=== PATIENT | male | born 1975 | race Caucasian/White ===

== ENCOUNTER 2021-05-03 08:06 | Outpatient (REF) | payer OTHER, SELFPAY ==
--- NOTE | ~2021-05-03 | XR_ITS ---
EXAMINATION: XR CHEST CLINICAL INFORMATION: R07.89 - Other chest pain COMPARISON: None TECHNIQUE: 2 views of the chest were obtained. FINDINGS: There is no pneumothorax or pleural reaction. No airspace consolidation or groundglass opacity. The costophrenic sulci are clear. There is no effusion. The heart is normal in size. The hilar and mediastinal contours are normal. There is no visible acute bony abnormality. Mild multilevel spurring is present in the thoracic spine. XR/XR chest 2V IMPRESSION: Unremarkable examination.
[2021-05-03 12:24] LABS: Alanine Aminotransferase 22 U/L (0-40); Albumin Level 4.3 g/dL (3.5-5.0); Alkaline Phosphatase 82 U/L (39-117); Anion Gap 10 (12-20); Aspartate Amino Transferase 17 U/L (5-37); Bilirubin Total 0.5 mg/dL (0.0-1.0); Blood Urea Nitrogen 11 mg/dL (9-16); Calcium 9.4 mg/dL (8.4-10.2); Carbon Dioxide 30 mmol/L (22-29); Chloride 102 mmol/L (96-108); Cholesterol 194 mg/dL; Estimated Glomerular Filt Rate > 60; HDL Cholesterol 27 mg/dL; LDL Cholesterol Calculated 101 mg/dl; Potassium 4.1 mmol/L (3.3-5.1); Sodium 138 mmol/L (135-145); Total Protein 7.4 g/dL (6.5-8.0); Triglycerides 333 mg/dL
[2021-05-03 12:30] LABS: Estimated Average Glucose 260 mg/dL; Hemoglobin A1c % 10.7 %
[2021-05-03 12:46] LABS: TSH reflex Free T4 3.71 uIU/mL (0.32-4.0)
[2021-05-03 12:54] LABS: Glucose Fasting 327 mg/dL (60-99)
[2021-05-03 13:53] LABS: Creatinine Urine 106.11 mg/dL; Microalbum/Creatinine Ratio Ur 6.5 ug/mg cr
== END 2021-05-03 08:07 | disposition home or self-care (01) ==
LOC: HO.HMGCLDS 08:06
PROVIDERS: PCP Nurse Practitioner Family; Visit Provider Nurse Practitioner Family
DX: Z00.00 Encounter for general adult medical examination without abnormal findings (principal); E11.9 Type 2 diabetes mellitus without complications; R07.89 Other chest pain
CPT/HCPCS: 36415; 71046; 80053; 80061; 82043; 83036; 84443

== ENCOUNTER 2021-11-01 11:06 | Outpatient (REF) | payer OTHER, SELFPAY ==
[2021-11-01 14:09] LABS: Appearance Urine CLOUDY; Color Urine YELLOW; Glucose Urine UA 250 MG/DL (NEG); Leukocyte Esterase Urine NEG (NEG); Nitrite Urine NEG (NEG); Specific Gravity - Urine >= 1.030 (1.005-1.025); Urine Blood NEG (NEG); Urine Ketones 5 MG/DL (NEG); Urine Protein NEG (NEG-TRACE)
[2021-11-01 14:29] LABS: Alanine Aminotransferase 24 U/L (0-40); Albumin Level 4.4 g/dL (3.5-5.0); Alkaline Phosphatase 70 U/L (39-117); Anion Gap 13 (12-20); Aspartate Amino Transferase 20 U/L (5-37); Bilirubin Total 0.7 mg/dL (0.0-1.0); Carbon Dioxide 26 mmol/L (22-29); Chloride 102 mmol/L (96-108); Cholesterol 195 mg/dL; Estimated Glomerular Filt Rate > 60; Glucose Fasting 182 mg/dL (60-99); HDL Cholesterol 35 mg/dL; LDL Cholesterol Calculated 133 mg/dl; Sodium 137 mmol/L (135-145); TSH reflex Free T4 1.74 uIU/mL (0.32-4.0); Total Protein 7.8 g/dL (6.5-8.0); Triglycerides 136 mg/dL
[2021-11-01 15:38] LABS: Estimated Average Glucose 235 mg/dL; Hemoglobin A1c % 9.8 %
[2021-11-01 15:47] LABS: Blood Urea Nitrogen 11 mg/dL (9-16); Calcium 9.8 mg/dL (8.4-10.2)
== END 2021-11-01 11:07 | disposition home or self-care (01) ==
LOC: HO.HMGCLDS 11:06
PROVIDERS: Visit Provider Nurse Practitioner Family
DX: E11.65 Type 2 diabetes mellitus with hyperglycemia (principal)
CPT/HCPCS: 36415; 80053; 80061; 81003; 83036; 84443

== ENCOUNTER 2022-02-27 10:32 | Outpatient (REF) | payer OTHER, SELFPAY ==
[2022-02-27 11:30] LABS: Appearance Urine CLEAR; Color Urine YELLOW; Glucose Urine UA 100 MG/DL (NEG); Leukocyte Esterase Urine NEG (NEG); Nitrite Urine NEG (NEG); PH 5.5 (5.0-8.0); Specific Gravity - Urine >= 1.030 (1.005-1.025); Urine Blood NEG (NEG); Urine Ketones NEG (NEG); Urine Protein NEG (NEG-TRACE)
[2022-02-27 12:18] LABS: Alanine Aminotransferase 19 U/L (0-40); Albumin Level 4.3 g/dL (3.5-5.0); Alkaline Phosphatase 68 U/L (39-117); Anion Gap 13 (12-20); Aspartate Amino Transferase 16 U/L (5-37); Bilirubin Total 0.7 mg/dL (0.0-1.0); Blood Urea Nitrogen 9 mg/dL (9-16); Calcium 9.2 mg/dL (8.4-10.2); Carbon Dioxide 25 mmol/L (22-29); Chloride 102 mmol/L (96-108); Cholesterol 170 mg/dL; Estimated Average Glucose 226 mg/dL; Estimated Glomerular Filt Rate > 60; Glucose Fasting 203 mg/dL (60-99); HDL Cholesterol 33 mg/dL; Hemoglobin A1c % 9.5 %; LDL Cholesterol Calculated 105 mg/dl; Sodium 136 mmol/L (135-145); Total Protein 7.5 g/dL (6.5-8.0); Triglycerides 160 mg/dL
[2022-02-27 12:22] LABS: TSH reflex Free T4 1.72 uIU/mL (0.32-4.0)
== END 2022-02-27 10:33 | disposition home or self-care (01) ==
LOC: HO.HMGCLDS 10:32
PROVIDERS: PCP Nurse Practitioner Family; Visit Provider Nurse Practitioner Family
DX: Z00.00 Encounter for general adult medical examination without abnormal findings (principal); E11.9 Type 2 diabetes mellitus without complications
CPT/HCPCS: 36415; 80053; 80061; 81003; 83036; 84443

== ENCOUNTER 2023-07-22 10:32 | Outpatient (AMB) | payer OTHER, SELFPAY ==
--- NOTE | 2023-07-22 11:10 | A.OFFPC_ITS ---
Vital Signs 07/22/23 11:13 Height 6 ft 1 in Weight 292 lb BMI 38.5 BP 122/90 H Blood Pressure Location Lt brachial Position Sitting Pulse 86 Pulse Source Pulse Oximeter Pulse Oximetry (%) 98 Oxygen Delivery Method Room Air Intake Visit Reasons: Annual PE+ NEEDS PHQ9+ THRIVE Intake Note: Patient would like to talk about bilat hand numbness/falling asleep and has been happening for about 2 months. Allergies lisinopril Adverse Reaction (Unknown, Verified 07/22/23 11:13) cough dogs and cats Allergy (Unknown, Uncoded 07/22/23 11:13) Unknown oak Allergy (Unknown, Uncoded 07/22/23 11:13) Unknown Medication List - Last Reconciled 07/22/23 by Venkat Contreras [facility] amlodipine 10 mg PO DAILY 90 days blood sugar diagnostic (FreeStyle Lite Strips) patient to check blood sugar once daily blood-glucose meter (FreeStyle Lite Meter kit) patient to check blood sugar once daily dulaglutide 3 mg (0.5 mL) subcut QWEEK 30 days hydrochlorothiazide 12.5 mg PO DAILY 90 days hydrocortisone 2.5% 1 appl topical BID PRN 14 days irbesartan 300 mg PO DAILY 90 days ketoconazole 2% 1 appl topical BID 14 days lancets (FreeStyle Lancets) Patient to check blood sugar once daily pravastatin 20 mg PO DAILY 90 days Tobacco use date assessed: 01/10/23 Dental Screening Dental Screen Date: 07/22/23 Did you have a dental visit in the last 12 months?: No Did you have a dental problem in the last 6 months where you did not have access to dental care?: No HPI Annual PE+ NEEDS PHQ9+ THRIVE HPI Details Pt is here for a PE. Will order labs. Due for colon screen, will refer to GI. Pt is a diabetic, on an ARB and a statin. A1C in office today is 7.2. Due for microalbumin, will order. Denies polyuria, polydipsia, and neuropathy. Pt denies any signs and symptoms of hypoglycemia and does know how to correct it. Pt does not check his blood sugar. Will increase trulicity from 3mg to 4.5mg. He will think about a sensor. Eye exam is up to date. Will refer to podiatry for ingrown toenails. HTN: Pt reports that his blood pressure at home is in the 120s/80s. Denies chest pain, shortness of breath, headache, dizziness, and blurred vision. [facility] Medical History Uncontrolled diabetes mellitus Surgical History No pertinent past surgical history Family History Father Chronic arthritis Gout Diabetes mellitus Mother HTN (hypertension) Maternal Grandmother Unknown family medical history Sister No problems noted. Son No problems noted. Daughter No problems noted. Social History Housing: House Alcohol intake: never Patient Tobacco Use Status: Former Tobacco user Cigarettes Per Day: 10 e-Cigarette/Vaping Use: Never Used Second Hand Smoke Exposure: No Current occupational status: unemployed Cognitive needs: No Hearing needs: No Vision needs: No Questionnaire PHQ-9 Over the last 2 weeks, how often have you been bothered by any of the following problems? 1. Little interest or pleasure in doing things: not at all 2. Feeling down, depressed, or hopeless: not at all 3. Trouble falling or staying asleep, or sleeping too much: several days 4. Feeling tired or having little energy: several days 5. Poor appetite or overeating: several days 6. Feeling bad about yourself - or that you are a failure or have let yourself or your family down: not at all 7. Trouble concentrating on things, such as reading the newspaper or watching television: not at all 8. Moving or speaking so slowly that other people could have noticed. Or the opposite - being so fidgety or restless that you have been moving around a lot more than usual: not at all 9. Thoughts that you would be better off or of hurting yourself in some way: not at all Total score: 3 Depression Screening Interpretation: Negative Depression Screening Done: Yes 56879 - PHQ-9 Billing: Yes Source: Developed by Drs. Benjamin Cevallos, Mis Romero, Parth Medina and colleagues, with an educational kadi from [employer]. Thrive Questionnaire Date Thrive assessed: 07/22/23 I am a: Patient What is your living situation today?: I have a steady place to live Within the past 12 months, did the food you bought not last and you didn't have the money to get more?: Never true Within the past 12 months, did you worry whether your food would run out before you got money to buy more?: Never true Do you have trouble paying for medicines?: No Do you have trouble getting transportation to medical appointments?: No Do you have trouble paying your heating and electricity bill?: No Do you have trouble taking care of your child, family member or friend?: No Do you have trouble with day-to-day activities such as bathing, preparing meals, shopping, managing finances, etc.?: No Are you currently unemployed and looking for a job?: No Are you interested in more education?: No AUDIT C Alcohol Use Questionnaire (AUDIT-C) 1. How often do you have a drink containing alcohol?: Never 3. How often do you have six or more drinks on one occasion?: Never Total Score: 0 Score Reviewed/Action Taken: No ARLETH-7 AMB Questionnaire ARLETH-7 Date ARLETH - 7 assessed: 07/22/23 Feeling nervous, anxious, or on edge: 0 = Not at all Not being able to stop or control worryin = Not at all Worrying too much about different things: 0 = Not at all Trouble relaxin = Several days Being so restless that it is hard to sit still: 0 = Not at all Becoming easily annoyed or irritable: 0 = Not at all Feeling afraid as if something awful might happen: 0 = Not at all Total ARLETH-7 score (0-4 normal; 5-9 mild; 10-14 moderate; 15-21 severe): 1 Source: Developed by Drs. Benjamin Cevallos, Parth Elise and colleagues, with an educational kadi from [employer]. ARLETH-7 Assessment Billing ARLETH-7 Assessment Tool: ARLETH-7 Assessment 49662 Review of Systems Const Denies chills and Denies fever(s) Eyes Denies blurry vision ENT Denies vertigo, Denies dizziness and Denies sore throat Card Denies chest pain at rest, Denies chest pain with activity, Denies diaphoresis, Denies dyspnea and Denies dyspnea on exertion Resp Denies cough, Denies dyspnea, Denies dyspnea on exertion and Denies wheezing GI Denies abdominal pain, Denies melena, Denies hematochezia, Denies constipation, Denies diarrhea and Denies loose stools Denies hematuria Musc Denies numbness and Denies tingling Skin/Breast Denies lesions Neuro Denies vertigo, Denies dizziness, Denies numbness and Denies tingling Psych Denies anxiety, Denies depression, Denies homicidal ideation, Denies suicidal ideation and Denies other (substance abuse) Aller/Immun Denies wheezing Physical exam (Primary Care) Vital Signs: Last Vital Signs Pulse 86 07/22/23 11:13 BP 122/90 H 07/22/23 11:13 Pulse Ox 98 07/22/23 11:13 Oxygen Delivery Method Room Air 07/22/23 11:13 BMI result Body Mass Index 38.5 Tobacco/Smoking Status: Tobacco use Status Tobacco use date assessed 01/10/23 07/22/23 11:11 Patient Tobacco Use Status Former Tobacco user 07/22/23 11:11 e-Cigarette/Vaping Use Never Used 07/22/23 11:11 PHQ-9: PHQ-9 Score PHQ-9: Total score 3 07/22/23 11:46 Depression Screening Interpretation: Negative Thrive Assessment: Date of Thrive Assessment Date Thrive assessed 07/22/23 07/22/23 11:46 Const General: cooperative Nutritional Appearance: obese Orientation/consciousness: patient oriented x3 HENMT Head: Yes normal to inspection, Yes normocephalic and Yes atraumatic Ears: TM's normal bilaterally Eyes General: appearance normal, both eyes and all related structures Alignment and Position: alignment normal and position normal Neck Neck: Yes normal visual inspection and Yes no lymphadenopathy Thyroid: Thyroid normal Resp Effort & Inspection: normal respiratory effort Auscultation: clear to auscultation bilaterally Cardio Rate: regular rate Rhythm: regular rhythm Heart sounds: S1 normal heart sound present, S2 normal heart sound present and no murmurs GI Palpation (GI): Soft to palpation and nontender Auscultation: normal bowel sounds Male General Exam: Yes normal external exam Penis: normal penis Scrotum: scrotum normal, testes descended bilaterally and no inguinal hernias Testes: no testicular mass Skin Rashes: no rashes Neuro General: patient oriented x3, moves all extremities, no focal motor deficits and deep tendon reflexes 2+ bilaterally Romberg Test: Negative Extrem Other: bilat feet: + sensation with use of monofilament, bilat big toenails ingrown without infection Psych Appearance: grossly normal Mental Status: mental status grossly normal Speech and movement: Normal speech and movement present Affect: normal affect Attitude: cooperative Thought process: Normal thought process present Thought content: Normal thought content present Insight: Good insight present (Psych) Judgement: Good judgement present (Psych) Office Procedures Flu Questionnaire Does the patient have a severe egg allergy?: No Does the patient have severe life threatening allergies?: No Does the patient have a fever or illness today?: No Has the patient ever had Guillain-Wink Syndrome?: No Has the patient ever had any past reaction to a flu shot?: No Immunizations flu vacc [id number] 6mos up(PF) 60 mcg(15 mcgx4)/0.5 mL IM syringe Performing Provider: BENJI Hyde Performing Location: [facility] Administered by: Victorina Tucker CMA on 07/22/23 11:47 Dose Route Admin Location Dispensed Lot Number Expiration Date NDC Chief Strategy Officer 0.5 mL IM Right Deltoid 0.5 mL [id number] 03/22/24 19009-373-00 [employer] VIS Given Date VIS Provided VIS Publication Date 07/22/23 Single Vaccine 21 Eligibility Eligibility Date Funding Source Not [facility] Eligible 07/22/23 Private Assessment and Plan Assessment & Plan (1) Ingrown toenail: Code(s): L60.0 - Ingrowing nail (2) Diabetes: Code(s): E11.9 - Type 2 diabetes mellitus without complications (3) Screening for colon cancer: Code(s): Z12.11 - Encounter for screening for malignant neoplasm of colon (4) Physical exam: Code(s): Z00.00 - Encounter for general adult medical examination without abnormal findings Plan The patient agreed to the use of a manager medical writing for this encounter. Scribed for BENJI Pulido by meredith Traore scribe, on 07/22/2023 at 11:25 EST. Orders: Orders Influenza [id number] Immunization Today Z23 - Encounter for immunization Referrals Gastroenterology Referral Z12.11 - Encounter for screening for malignant neoplasm of colon Podiatry Referral E11.9 - Type 2 diabetes mellitus without complications, L60.0 - Ingrowing nail Medications: New flu vacc [id number] 6mos up(PF) 0.5 mL IM ONCE 0.5 mL 0RF Z23 - Encounter for immunization Changed From dulaglutide 3 mg (0.5 mL) subcut QWEEK 30 days 2.5 mL 3RF E11.9 - Type 2 diabetes mellitus without complications To dulaglutide 4.5 mg (0.5 mL) subcut QWEEK 30 days 2.5 mL 3RF E11.9 - Type 2 diabetes mellitus without complications Coding Level of Care Code Est Pt Prev Care 40-64y(60695) Diagnoses Ingrown toenail L60.0 Diabetes E11.9 Screening for colon cancer Z12.11 Physical exam Z00.00 Additional Codes ARLETH-7 Assessment Billing - ARLETH-7 Assessment Tool: ARLETH-7 Assessment [id number] ([id number])
[2023-07-22 11:13] VITALS: BP 122/90; PULSE 86; O2SAT 98; BMI 38.5
== END 2023-07-22 11:56 | disposition home or self-care (01) ==
PROVIDERS: PCP Nurse Practitioner Family; Visit Provider Nurse Practitioner Family
DX: Z00.00 Encounter for general adult medical examination without abnormal findings (principal); E11.9 Type 2 diabetes mellitus without complications; L60.0 Ingrowing nail; Z23 Encounter for immunization
CPT/HCPCS: 83036; 90471; 90472; 90677; 90686; 99396

== ENCOUNTER 2023-12-12 10:33 | Outpatient (REF) | payer OTHER, SELFPAY ==
[2023-12-12 13:19] LABS: MANUAL DIFF FLAG NO
[2023-12-12 13:41] LABS: Basophils Percent Auto 0.3 % (0-2); Eosinophils Absolute Auto 0.2 X10*3/uL (0.0-0.4); Eosinophils Percent Auto 3.4 % (0-4); Hematocrit 42.9 % (42.0-52.0); Hemoglobin 14.7 g/dl (14.0-18.0); Imm Gran Abs Auto 0.02 X10*3/uL (0.00-0.03); Imm Gran Pct Auto 0.3 % (0.0-0.4); Lymphocytes Absolute Auto 2.4 X10*3/uL (1.2-4.9); Mean Corpuscular HGB Conc 34.3 g/dl (31.0-36.0); Mean Corpuscular Hemoglobin 30.2 pg (27.0-33.0); Mean Corpuscular Volume 88.3 fL (80.0-98.0); Mean Platelet Volume 10.3 fL (9.4-12.4); Monocytes Absolute Auto 0.4 X10*3/uL (0.1-1.2); Monocytes Percent Auto 6.7 % (2-11); Neutrophils Absolute Auto 3.1 x10*3/uL (2.0-8.3); Neutrophils Percent Auto 50.3 % (45-73); Platelet Count 258 X10*3/uL (160-400); Red Blood Count 4.86 X10*6/uL (4.60-5.80); Red Cell Distribution Width 11.5 % (11.0-16.0); White Blood Count 6.1 X10*3/uL (4.8-10.8)
[2023-12-12 13:49] LABS: Appearance Urine Clear; Color Urine Yellow; Glucose Urine UA 500 mg/dL (Negative); Leukocyte Esterase Urine Negative (Negative); Nitrite Urine Negative (Negative); PH 7.5 (5.0-9.0); Specific Gravity - Urine 1.015 (1.005-1.025); Urine Blood Negative (Negative); Urine Ketones Negative (Negative); Urine Protein Negative (Neg-Trace)
[2023-12-12 14:02] LABS: Alanine Aminotransferase 14 U/L (0-40); Albumin Level 4.4 g/dL (3.5-5.0); Alkaline Phosphatase 76 U/L (39-117); Anion Gap 11 (12-20); Aspartate Amino Transferase 17 U/L (5-37); Bilirubin Total 0.7 mg/dL (0.0-1.0); Blood Urea Nitrogen 11 mg/dL (9-16); Calcium 9.4 mg/dL (8.4-10.2); Carbon Dioxide 27 mmol/L (22-29); Chloride 102 mmol/L (96-108); Cholesterol 193 mg/dL (<200); Estimated Glomerular Filt Rate > 60; Glucose Fasting 234 mg/dL (60-99); HDL Cholesterol 34 mg/dL (>40); LDL Cholesterol Calculated 126 mg/dL (<100); Potassium 4.1 mmol/L (3.3-5.1); Sodium 136 mmol/L (135-145); Total Protein 7.8 g/dL (6.5-8.0); Triglycerides 169 mg/dL (<150)
[2023-12-12 14:10] LABS: TSH reflex Free T4 2.17 uIU/mL (0.32-4.0)
[2023-12-12 14:21] LABS: Creatinine Urine 57.85 mg/dL; Microalbumin Urine < 5.0 mg/L
== END 2023-12-12 10:34 | disposition home or self-care (01) ==
LOC: HO.HMGCLDS 10:33
PROVIDERS: PCP Nurse Practitioner Family; Visit Provider Nurse Practitioner Family
DX: E11.9 Type 2 diabetes mellitus without complications (principal)
CPT/HCPCS: 36415; 80053; 80061; 81003; 82043; 82570; 84443; 85025

== ENCOUNTER 2023-12-12 15:35 | Outpatient (AMB) | payer OTHER, SELFPAY ==
[2023-12-12 15:42] VITALS: BP 156/90; PULSE 96; O2SAT 98; BMI 38.3
--- NOTE | 2023-12-12 15:42 | A.OFFPC_ITS ---
Vital Signs 12/12/23 15:42 Height 6 ft 1 in Weight 290 lb BMI 38.3 BP 156/90 H Blood Pressure Location Lt brachial Position Sitting Pulse 96 Pulse Source Pulse Oximeter Pulse Oximetry (%) 98 Oxygen Delivery Method Room Air Intake Visit Reasons: diabetes/HTN follow up Intake Note: pt is here for dm/htn follow up Software Client Architect Required: No Accompanied by: Self / Same As Patient Allergies lisinopril Adverse Reaction (Unknown, Verified 12/12/23 17:41) cough dogs and cats Allergy (Unknown, Uncoded 12/12/23 17:41) Unknown oak Allergy (Unknown, Uncoded 12/12/23 17:41) Unknown Medication List - Last Reconciled 12/12/23 by Venkat Contreras, [facility]- amlodipine 10 mg PO DAILY 90 days blood sugar diagnostic (FreeStyle Lite Strips) patient to check blood sugar once daily blood-glucose meter (FreeStyle Lite Meter kit) patient to check blood sugar once daily carvedilol (Coreg) 3.125 mg PO BID 90 days dulaglutide 4.5 mg (0.5 mL) subcut QWEEK 30 days hydrochlorothiazide 12.5 mg PO DAILY 90 days hydrocortisone 2.5% 1 appl topical BID PRN 14 days irbesartan 300 mg PO DAILY 90 days ketoconazole 2% 1 appl topical BID 14 days lancets (FreeStyle Lancets) Patient to check blood sugar once daily pravastatin 20 mg PO DAILY 90 days Tobacco use date assessed: 12/12/23 Dental Screening Dental Screen Date: 12/12/23 Did you have a dental visit in the last 12 months?: Yes Did you have a dental problem in the last 6 months where you did not have access to dental care?: No Was dental information given to patient?: Patient has dentist HPI diabetes/HTN follow up HPI Details Pt is a diabetic, on an ARB and a statin. A1C in office today is 8.8. Microalbumin is up to date. Denies polyuria, polydipsia, and neuropathy. Pt denies any signs and symptoms of hypoglycemia and does know how to correct it. Pt does not check his blood sugar often. He reports being off his trulicity for 3 weeks due to supply issues. Will send ozempic. Reenforced the importance of proper diet. He does drink soda daily, educated on dangers of this. HTN: Blood pressure is managed with amlodipine 10mg, hydrochlorothiazide 12.5mg, and irbesartan 300mg. Blood pressure is elevated today. Pt reports that at home it is elevated as well. Will add carvedilol 3.125mg bid. Denies chest pain, shortness of breath, headache, dizziness, and blurred vision. Pt reports he will make his own optometry appt. [facility] Medical History Uncontrolled diabetes mellitus Surgical History No pertinent past surgical history Family History Father Chronic arthritis Gout Diabetes mellitus Mother HTN (hypertension) Maternal Grandmother Unknown family medical history Sister No problems noted. Son No problems noted. Daughter No problems noted. Social History Housing: House Alcohol intake: never Patient Tobacco Use Status: Former Tobacco user Cigarettes Per Day: 10 e-Cigarette/Vaping Use: Never Used Second Hand Smoke Exposure: No Current occupational status: unemployed Cognitive needs: No Hearing needs: No Vision needs: No Questionnaire PHQ-9 Over the last 2 weeks, how often have you been bothered by any of the following problems? 1. Little interest or pleasure in doing things: several days 2. Feeling down, depressed, or hopeless: several days 3. Trouble falling or staying asleep, or sleeping too much: more than half the days 4. Feeling tired or having little energy: several days 5. Poor appetite or overeating: several days 6. Feeling bad about yourself - or that you are a failure or have let yourself or your family down: several days 7. Trouble concentrating on things, such as reading the newspaper or watching television: several days 8. Moving or speaking so slowly that other people could have noticed. Or the opposite - being so fidgety or restless that you have been moving around a lot more than usual: not at all 9. Thoughts that you would be better off or of hurting yourself in some way: not at all Total score: 8 Depression Screening Interpretation: Negative Depression Screening Done: Yes 19769 - PHQ-9 Billing: Yes Source: Developed by Drs. Benjamin Cevallos, Mis Romero, Parth Medina and colleagues, with an educational kadi from [employer]. Thrive Questionnaire Date Thrive assessed: 12/12/23 I am a: Patient What is your living situation today?: I have a steady place to live Within the past 12 months, did the food you bought not last and you didn't have the money to get more?: Never true Within the past 12 months, did you worry whether your food would run out before you got money to buy more?: Never true Do you have trouble paying for medicines?: No Do you have trouble getting transportation to medical appointments?: No Do you have trouble paying your heating and electricity bill?: No Do you have trouble taking care of your child, family member or friend?: No Do you have trouble with day-to-day activities such as bathing, preparing meals, shopping, managing finances, etc.?: No Are you currently unemployed and looking for a job?: No Are you interested in more education?: No Please select the resources that you would like help with: None Currently or been in a relationship where the following occur: no concerns reported THRIVE Score: 0 AUDIT C Alcohol Use Questionnaire (AUDIT-C) 1. How often do you have a drink containing alcohol?: Never 3. How often do you have six or more drinks on one occasion?: Never Total Score: 0 Score Reviewed/Action Taken: Yes ARLETH-7 AMB Questionnaire ARLETH-7 Date ARLETH - 7 assessed: 12/12/23 Feeling nervous, anxious, or on edge: 1 = Several days Not being able to stop or control worryin = Several days Worrying too much about different things: 1 = Several days Trouble relaxin = Several days Being so restless that it is hard to sit still: 0 = Not at all Becoming easily annoyed or irritable: 2 = More than half the days Feeling afraid as if something awful might happen: 0 = Not at all Total ARLETH-7 score (0-4 normal; 5-9 mild; 10-14 moderate; 15-21 severe): 6 Source: Developed by Mis Duran, Parth Medina and colleagues, with an educational kadi from [employer]. ARLETH-7 Assessment Billing ARLETH-7 Assessment Tool: ARLETH-7 Assessment 03284 Review of Systems Const Reports as per HPI Physical exam (Primary Care) Vital Signs: Last Vital Signs Pulse 96 12/12/23 15:42 BP 156/90 H 12/12/23 15:42 Pulse Ox 98 12/12/23 15:42 Oxygen Delivery Method Room Air 12/12/23 15:42 BMI result Body Mass Index 38.3 Tobacco/Smoking Status: Tobacco use Status Tobacco use date assessed 12/12/23 12/12/23 15:44 Patient Tobacco Use Status Former Tobacco user 12/12/23 15:44 e-Cigarette/Vaping Use Never Used 12/12/23 15:44 PHQ-9: PHQ-9 Score PHQ-9: Total score 8 12/12/23 16:01 Depression Screening Interpretation: Negative Thrive Assessment: Date of Thrive Assessment Date Thrive assessed 12/12/23 12/12/23 15:55 Currently or been in a relationship where the following occur: no concerns reported Const General: cooperative Nutritional Appearance: obese Orientation/consciousness: patient oriented x3 Resp Effort & Inspection: normal respiratory effort Auscultation: clear to auscultation bilaterally Cardio Rate: regular rate Rhythm: regular rhythm Heart sounds: S1 normal heart sound present and S2 normal heart sound present Neuro General: patient oriented x3 Extrem Other: bilat feet: + sensation with use of monofilament, feet intact Psych Appearance: grossly normal Mental Status: mental status grossly normal Speech and movement: Normal speech and movement present Affect: normal affect Attitude: cooperative Thought process: Normal thought process present Thought content: Normal thought content present Insight: Good insight present (Psych) Judgement: Good judgement present (Psych) Assessment and Plan Assessment & Plan (1) Uncontrolled diabetes mellitus: Code(s): E11.65 - Type 2 diabetes mellitus with hyperglycemia Plan: encouraged to quit soda. encouraged checking his sugars more often. stopping trulicity and sending ozempic (backorder of trulicity) (2) HTN (hypertension): Code(s): I10 - Essential (primary) hypertension Plan: adding low dose coreg bid. Plan The patient agreed to the use of a medical center representative for this encounter. Scribed for BENJI Pulido by Candy Parra, medical center representative, on 12/12/2023 at 16:00 EST. Orders: Orders TSH reflex Free T4 Today E11.9 - Type 2 diabetes mellitus without complications UA CC w/rflx Micro + Cult Today E11.9 - Type 2 diabetes mellitus without complications Microalbumin, Random (w Creat) Today E11.9 - Type 2 diabetes mellitus without complications Complete Blood Count Auto Diff Today E11.9 - Type 2 diabetes mellitus without complications Comprehensive [place]. Panel Fast Today E11.9 - Type 2 diabetes mellitus without complications Lipid Panel Today E11.9 - Type 2 diabetes mellitus without complications Medications: New semaglutide (Ozempic) 1 mg (0.75 mL) subcut QWEEK 3 mL 0RF carvedilol (Coreg) must administer with a meal/food 3.125 mg PO BID 180 tabs 0RF 90 days Discontinued dulaglutide Discontinued Reason: Doctor's Order 4.5 mg (0.5 mL) subcut QWEEK 30 days 2.5 mL 3RF E11.9 - Type 2 diabetes mellitus without complications Coding Level of Care Code Est Pt Level 3 (47602) Diagnoses Uncontrolled diabetes mellitus E11.65 HTN (hypertension) I10 Additional Codes ARLETH-7 Assessment Billing - ARLETH-7 Assessment Tool: ARLETH-7 Assessment 47130 ([id number])
== END 2023-12-12 16:53 | disposition home or self-care (01) ==
PROVIDERS: PCP Nurse Practitioner Family; Visit Provider Nurse Practitioner Family
DX: E11.65 Type 2 diabetes mellitus with hyperglycemia (principal)
CPT/HCPCS: 83036; 99213

== ENCOUNTER 2024-04-16 14:10 | Outpatient (AMB) | payer OTHER, SELFPAY ==
--- NOTE | 2024-04-16 14:18 | MHC.PC.OV ---
Vital Signs 04/16/24 14:28 Height 6 ft 1 in Weight 290 lb BMI 38.3 BP 130/100 H Blood Pressure Location Rt brachial Position Sitting Pulse 92 Pulse Source Pulse Oximeter Pulse Oximetry (%) 97 Oxygen Delivery Method Room Air Intake Visit Reasons: 4M F/U DM/HTN Intake Note: Patient here for HTN f/u Allergies lisinopril Adverse Reaction (Unknown, Verified 04/16/24 14:27) cough dogs and cats Allergy (Unknown, Uncoded 04/16/24 14:27) Unknown oak Allergy (Unknown, Uncoded 04/16/24 14:27) Unknown Medication List - Last Reconciled 04/16/24 by Venkat Contreras, [facility]- amlodipine 10 mg PO DAILY 90 days blood sugar diagnostic (FreeStyle Lite Strips) patient to check blood sugar once daily blood-glucose meter (FreeStyle Lite Meter kit) patient to check blood sugar once daily carvedilol (Coreg) 3.125 mg PO BID 90 days hydrochlorothiazide 12.5 mg PO DAILY 90 days hydrocortisone 2.5% 1 appl topical BID PRN 14 days irbesartan 300 mg PO DAILY 90 days ketoconazole 2% 1 appl topical BID 14 days lancets (FreeStyle Lancets) Patient to check blood sugar once daily pravastatin 20 mg PO DAILY 90 days semaglutide 0.25 mg (0.368 mL) subcut QWEEK Tobacco use date assessed: 12/12/23 Dental Screening Dental Screen Date: 12/12/23 HPI 4M F/U DM/HTN HPI Details Pt is a diabetic. A1C in office today is 9.3. Microalbumin is up to date. Denies polyuria, polydipsia, and neuropathy. Pt denies any signs and symptoms of hypoglycemia and does know how to correct it. Pt reports being off most of his medications for over 4 months due to insurance issues. Will refill all meds and restart ozempic at 0.25mg. Strongly encouraged pt to work on his diet. He is still drinking soda, though not as much. Educated pt on high sugar content and the importance of cutting back on this. Pt will schedule his own eye exam. HTN: Pt has been off his blood pressure meds for approximately 1-2 weeks. Will resend these. Denies chest pain, shortness of breath, headache, dizziness, and blurred vision. [facility] Medical History Uncontrolled diabetes mellitus Surgical History No pertinent past surgical history Family History Father Chronic arthritis Gout Diabetes mellitus Mother HTN (hypertension) Maternal Grandmother Unknown family medical history Sister No problems noted. Son No problems noted. Daughter No problems noted. Social History Housing: House Alcohol intake: never Patient Tobacco Use Status: Former Tobacco user Cigarettes Per Day: 10 e-Cigarette/Vaping Use: Never Used Second Hand Smoke Exposure: No Current occupational status: unemployed Cognitive needs: No Hearing needs: No Vision needs: No Questionnaire PHQ-9 Over the last 2 weeks, how often have you been bothered by any of the following problems? 1. Little interest or pleasure in doing things: not at all 2. Feeling down, depressed, or hopeless: not at all 3. Trouble falling or staying asleep, or sleeping too much: several days 4. Feeling tired or having little energy: several days 5. Poor appetite or overeating: not at all 6. Feeling bad about yourself - or that you are a failure or have let yourself or your family down: not at all 7. Trouble concentrating on things, such as reading the newspaper or watching television: not at all 8. Moving or speaking so slowly that other people could have noticed. Or the opposite - being so fidgety or restless that you have been moving around a lot more than usual: not at all 9. Thoughts that you would be better off or of hurting yourself in some way: not at all Total score: 2 Source: Developed by Drs. Benjamin Cevallos, Mis Romero, Parth Medina and colleagues, with an educational kadi from [employer] Thrive Questionnaire Date Thrive assessed: 12/12/23 I am a: Patient What is your living situation today?: I have a steady place to live Within the past 12 months, did the food you bought not last and you didn't have the money to get more?: Never true Within the past 12 months, did you worry whether your food would run out before you got money to buy more?: Never true Do you have trouble paying for medicines?: Yes Do you have trouble getting transportation to medical appointments?: No Do you have trouble paying your heating and electricity bill?: No Do you have trouble taking care of your child, family member or friend?: No Do you have trouble with day-to-day activities such as bathing, preparing meals, shopping, managing finances, etc.?: No Are you currently unemployed and looking for a job?: No Are you interested in more education?: No Please select the resources that you would like help with: Paying for medicine Currently or been in a relationship where the following occur: No concerns reported THRIVE Score: 0 AUDIT C Alcohol Use Questionnaire (AUDIT-C) 1. How often do you have a drink containing alcohol?: Never Total Score: 0 ARLETH-7 AMB Questionnaire ARLETH-7 Date ARLETH - 7 assessed: 12/12/23 Feeling nervous, anxious, or on edge: 1 = Several days Not being able to stop or control worryin = Several days Worrying too much about different things: 1 = Several days Trouble relaxin = Several days Being so restless that it is hard to sit still: 1 = Several days Becoming easily annoyed or irritable: 1 = Several days Feeling afraid as if something awful might happen: 1 = Several days Total ARLETH-7 score (0-4 normal; 5-9 mild; 10-14 moderate; 15-21 severe): 7 Source: Developed by Drs. Benjamin Cevallos, Mis Romero, Parth Medina and colleagues, with an educational kadi from [employer]. Review of Systems Const Reports as per HPI Physical exam (Primary Care) Vital Signs: Last Vital Signs Pulse 92 04/16/24 14:28 BP 130/100 H 04/16/24 14:28 Pulse Ox 97 04/16/24 14:28 Oxygen Delivery Method Room Air 04/16/24 14:28 BMI result Body Mass Index 38.3 Tobacco/Smoking Status: Tobacco use Status Tobacco use date assessed 12/12/23 04/16/24 14:20 Patient Tobacco Use Status Former Tobacco user 04/16/24 14:20 e-Cigarette/Vaping Use Never Used 04/16/24 14:20 PHQ-9: PHQ-9 Score PHQ-9: Total score 2 04/16/24 14:36 Thrive Assessment: Date of Thrive Assessment Date Thrive assessed 12/12/23 04/16/24 14:20 Currently or been in a relationship where the following occur: No concerns reported Const General: cooperative Nutritional Appearance: obese Orientation/consciousness: patient oriented x3 Resp Effort & Inspection: normal respiratory effort Auscultation: clear to auscultation bilaterally Cardio Rate: regular rate Rhythm: regular rhythm Heart sounds: S1 normal heart sound present and S2 normal heart sound present Neuro General: patient oriented x3 Extrem Other: bilat feet: + sensation with use of monofilament, feet intact Results AMB Hemoglobin A1c AMB Hemoglobin A1c 9.3 % Last Edit by JACI Magana on 04/16/24 14:52 Assessment and Plan Assessment & Plan (1) Uncontrolled diabetes mellitus: Code(s): E11.65 - Type 2 diabetes mellitus with hyperglycemia Plan: Labs ordered, restarting ozempic at 0.25mg (2) HTN (hypertension): Code(s): I10 - Essential (primary) hypertension Plan: restarted all meds, pt will check his BPs at home, and drop off values in the near future Plan The patient agreed to the use of a biomedical engineering aide for this encounter. Scribed for BENJI Pulido by Candy Parra biomedical engineering aide, on 04/16/2024 at 14:45 EST. Orders: Orders Complete Blood Count Auto Diff Today E11.65 - Type 2 diabetes mellitus with hyperglycemia TSH reflex Free T4 Today E11.65 - Type 2 diabetes mellitus with hyperglycemia Comprehensive [place]. Panel Fast Today E11.65 - Type 2 diabetes mellitus with hyperglycemia UA CC w/rflx Micro + Cult Today E11.65 - Type 2 diabetes mellitus with hyperglycemia Lipid Panel Today E11.65 - Type 2 diabetes mellitus with hyperglycemia AMB Hemoglobin A1c Today E11.9 - Type 2 diabetes mellitus without complications Medications: Changed From semaglutide (Ozempic) 1 mg (0.75 mL) subcut QWEEK 3 mL 0RF To semaglutide 0.25 mg (0.368 mL) subcut QWEEK 3 mL 0RF Refilled irbesartan 300 mg PO DAILY 90 days 90 tabs 0RF pravastatin 20 mg PO DAILY 90 days 90 tabs 0RF ketoconazole 2% 1 appl topical BID 14 days 30 grams 0RF carvedilol (Coreg) must administer with a meal/food 3.125 mg PO BID 90 days 180 tabs 0RF hydrocortisone 2.5% 1 appl topical BID 14 days PRN 28.35 grams 0RF skin irritation Coding Level of Care Code Est Pt Level 3 (72928) Diagnoses Uncontrolled diabetes mellitus E11.65 HTN (hypertension) I10
[2024-04-16 14:28] VITALS: BP 130/100; PULSE 92; O2SAT 97; BMI 38.3
== END 2024-04-16 14:57 | disposition home or self-care (01) ==
PROVIDERS: PCP Nurse Practitioner Family; Visit Provider Nurse Practitioner Family
DX: E11.65 Type 2 diabetes mellitus with hyperglycemia (principal); I10 Essential (primary) hypertension; E11.9 Type 2 diabetes mellitus without complications
CPT/HCPCS: 83036; 99213

== ENCOUNTER 2024-05-11 08:30 | Outpatient (REF) | payer OTHER, SELFPAY ==
[2024-05-11 10:36] LABS: MANUAL DIFF FLAG NO
[2024-05-11 10:43] LABS: Basophils Percent Auto 0.3 % (0-2); Eosinophils Absolute Auto 0.2 X10*3/uL (0.0-0.4); Eosinophils Percent Auto 3.9 % (0-4); Hematocrit 44.1 % (42.0-52.0); Hemoglobin 14.5 g/dl (14.0-18.0); Imm Gran Abs Auto 0.02 X10*3/uL (0.00-0.03); Imm Gran Pct Auto 0.3 % (0.0-0.4); Lymphocytes Absolute Auto 2.3 X10*3/uL (1.2-4.9); Lymphocytes Percent Auto 39.6 % (20-40); Mean Corpuscular HGB Conc 32.9 g/dl (31.0-36.0); Mean Corpuscular Volume 91.3 fL (80.0-98.0); Mean Platelet Volume 10.1 fL (9.4-12.4); Monocytes Absolute Auto 0.5 X10*3/uL (0.1-1.2); Monocytes Percent Auto 9.1 % (2-11); Neutrophils Absolute Auto 2.7 x10*3/uL (2.0-8.3); Neutrophils Percent Auto 46.8 % (45-73); Platelet Count 229 X10*3/uL (160-400); Red Blood Count 4.83 X10*6/uL (4.60-5.80); Red Cell Distribution Width 11.4 % (11.0-16.0); White Blood Count 5.8 X10*3/uL (4.8-10.8)
[2024-05-11 10:59] LABS: Appearance Urine Clear; Color Urine Yellow; Glucose Urine UA >=1000 mg/dL (Negative); Leukocyte Esterase Urine Negative (Negative); Nitrite Urine Negative (Negative); PH 6.5 (5.0-9.0); Specific Gravity - Urine >= 1.030 (1.005-1.025); UMIC TRIGGER UACC YES; Urine Blood Negative (Negative); Urine Ketones Trace mg/dL (Negative); Urine Protein Negative (Neg-Trace)
[2024-05-11 11:08] LABS: Bacteria Urine None Seen (None Seen); Hyaline Casts Urine 0-2 /LPF (0-2); RBC Urine 0-2 /HPF (0-2); Squamous Epithelial Cell Urine 0-2 /HPF (0-2); WBC Urine 0-5 /HPF (0-5)
[2024-05-11 11:20] LABS: Alanine Aminotransferase 13 U/L (0-40); Albumin Level 4.2 g/dL (3.5-5.0); Alkaline Phosphatase 68 U/L (39-117); Anion Gap 11 (12-20); Aspartate Amino Transferase 15 U/L (5-37); Bilirubin Total 0.5 mg/dL (0.0-1.0); Blood Urea Nitrogen 16 mg/dL (9-16); Calcium 9.4 mg/dL (8.4-10.2); Carbon Dioxide 29 mmol/L (22-29); Chloride 104 mmol/L (96-108); Cholesterol 168 mg/dL (<200); Estimated Glomerular Filt Rate > 60; Glucose Fasting 222 mg/dL (60-99); HDL Cholesterol 31 mg/dL (>40); LDL Cholesterol Calculated 97 mg/dL (<100); Potassium 4.8 mmol/L (3.3-5.1); Sodium 139 mmol/L (135-145); Total Protein 7.3 g/dL (6.5-8.0); Triglycerides 202 mg/dL (<150)
[2024-05-11 11:21] LABS: TSH reflex Free T4 2.67 uIU/mL (0.32-4.0)
== END 2024-05-11 08:31 | disposition home or self-care (01) ==
LOC: HO.HMGCLDS 08:30
PROVIDERS: PCP Nurse Practitioner Family; Visit Provider Nurse Practitioner Family
DX: E11.65 Type 2 diabetes mellitus with hyperglycemia (principal)
CPT/HCPCS: 36415; 80053; 80061; 81001; 84443; 85025

== ENCOUNTER 2024-05-11 08:44 | Outpatient (AMB) | payer OTHER, SELFPAY ==
--- NOTE | 2024-05-11 09:00 | AM.OFFWIN_ITS ---
Intake Vital Signs 05/11/24 09:01 Height 6 ft 1 in Weight 290 lb BMI 38.3 BP 132/86 Blood Pressure Location Rt brachial Position Sitting Pulse 77 Pulse Source Pulse Oximeter Temp 98.2 F Temp Source Oral Pulse Oximetry (%) 99 Oxygen Delivery Method Room Air Intake Visit Reasons: EP RT side back pain Intake Note: pt c/o RT side back pain. Ongoing for a month and a half Patient Tobacco Use Status: Former Tobacco user Allergies lisinopril Adverse Reaction (Unknown, Verified 05/11/24 09:00) cough dogs and cats Allergy (Unknown, Uncoded 05/11/24 09:00) Unknown oak Allergy (Unknown, Uncoded 05/11/24 09:00) Unknown Do you need a note to return to daycare/school/sports/work: No HPI EP RT side back pain HPI Details This note is constructed using voice recognition software. While every effort has been made to ensure accuracy, physical medicine specialist errors may have been included. The patient is a 49 year old male who presents to the clinic today with right thoracic back pain for the past month and a half, getting worse. 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 He reports the pain to be gradual onset. He denies shortness of breath, fever, chills, cough. Does have pain worse when he turns to the left or lays in c ertain positions in the bed. He has tried ibuprofen, heat, ice, all seemed to help a little bit but did not seem to resolve the pain. He denies numbness, tingling in arms or legs. [facility] Medical History Uncontrolled diabetes mellitus Surgical History No pertinent past surgical history Family History Father Chronic arthritis Gout Diabetes mellitus Mother HTN (hypertension) Maternal Grandmother Unknown family medical history Sister No problems noted. Son No problems noted. Daughter No problems noted. Social History Housing: House Alcohol intake: never Patient Tobacco Use Status: Former Tobacco user Cigarettes Per Day: 10 e-Cigarette/Vaping Use: Never Used Second Hand Smoke Exposure: No Current occupational status: unemployed Cognitive needs: No Hearing needs: No Vision needs: No Review of Systems Const All systems reviewed & are unremarkable except as noted in HPI and below Physical Exam Vital Signs: Last Vital Signs Temp 98.2 F 05/11/24 09:01 Pulse 77 05/11/24 09:01 BP 132/86 05/11/24 09:01 Pulse Ox 99 05/11/24 09:01 Oxygen Delivery Method Room Air 05/11/24 09:01 BMI result Body Mass Index 38.3 Const General: cooperative, healthy appearing, comfortable, no acute distress and alert Orientation/consciousness: patient oriented x3 Limitations: no limitations Resp Effort & Inspection: normal respiratory effort and able to speak in complete sentences Auscultation: clear to auscultation bilaterally Cardio Jugular venous distension: no JVD Palpation: normal PMI Rate: regular rate Heart sounds: S1 normal heart sound present, S2 normal heart sound present, no click, no gallops, no murmurs and no rubs General: Yes no CVA tenderness Back/Spine/Pelvis Other: Tender to palpation Right thoracic area with increased muscle bulging. Tenderness increase his on left lateral rotation, improves with right lateral rotation. Normal range of motion of spine. Intact distal neurovascular exam. Back: no CVA tenderness Skin General skin exam: no rashes or lesions noted, elasticity normal and turgor normal Neuro General: patient oriented x3 Extrem General: Yes normal to inspection, Yes full ROM, Yes capillary refill normal and Yes normal exam except as noted Psych Appearance: grossly normal Mental Status: mental status grossly normal Speech and movement: Normal speech and movement present Affect: normal affect Assessment & Plan Assessment & Plan (1) Back pain: Code(s): M54.9 - Dorsalgia, unspecified Qualifiers: Back pain location: thoracic back pain Chronicity: acute Back pain laterality: right Qualified Code(s): M54.6 - Pain in thoracic spine Plan: Given physical examination findings, appears to be muscular strain. Advised continuation NSAIDs, heat/ice. Prescription provided for muscle relaxer for symptomatic management. Advised rest from work for today and tomorrow. Advised follow up with PCP with worsening or failure to resolve. Plan See above for full details and plan. Medications: New cyclobenzaprine 10 mg PO TID 3 days PRN 9 tabs 0RF muscle spasm Coding Level of Care Code Est Pt Level 3 (35115) Diagnoses Acute right-sided thoracic back pain M54.6 Back pain location: thoracic back pain Chronicity: acute Back pain laterality: right
[2024-05-11 09:01] VITALS: BP 132/86; PULSE 77; TEMP 36.8; O2SAT 99; BMI 38.3
== END 2024-05-11 09:29 | disposition home or self-care (01) ==
PROVIDERS: PCP Nurse Practitioner Family; Visit Provider Registered Nurse
DX: M54.6 Pain in thoracic spine (principal)
CPT/HCPCS: 99213

== ENCOUNTER 2024-06-02 12:47 | Outpatient (AMB) | payer OTHER, SELFPAY ==
--- NOTE | 2024-06-02 12:49 | A.OFFVIS_ITS ---
Vital Signs 06/02/24 12:56 06/02/24 13:34 Height 6 ft 1 in Weight 293 lb 14.019 oz BMI 38.8 BP 142/88 H 136/80 Blood Pressure Location Rt brachial Position Sitting Pulse 102 H Pulse Source Pulse Oximeter Intake Visit Reasons: DM/CONFIRMED Intake Note: New patient present today for Diabetes Mellitus, referred by PCP. Patient reports he was on Trulicity and was switched to Ozempic and has not started it due to needing an PA. 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 He was diagnosed with diabetes about 5 years ago. Hemoglobin a1c 9.3% 04/16/24. POC 320. Feels fantastic. He is not sure he has a meter. He doesn't check BG regularly. Current medication regimen: Ozempic 0.25 mg. Trulicity was tolerated, but it was stopped because it was backordered. Metformin was not tolerated due to GI upset. Glipizde made him feel woozy and dizzy so it was discontinued. Compliance issues: Patient has not been able to get the Ozempic prescribed by his primary care. He says the insurance need to approve it. Diet: Breakfast-nothing Lunch-fast food like mcdonalds, burger, fries and soda Dinner-rice, salvadorean fries, pork chops, chicken, vegetables Snacks/desserts: chips, no candy or dessert Drinks 4-8 cans of regular pepsi daily. Hypoglycemia symptoms: no symptoms or episodes Hyperglycemia symptoms: no symptoms Eye exam: due. Referred to [facility]. Microvascular complications: none Macrovascular complications: none Hypertension: treated with your valsartan, hydrochlorothiazide, amlodipine, carvedilol. His blood pressure is suboptimal today, but he had a caffeinated soda before the appointment. Hyperlipidemia: treated with pravastatin 20 mg. LDL at goal <100. ROS: Constitutional: No unexplained weight loss, fever, chills, fatigue or night sweats. Respiratory: No shortness of breath, cough or sputum production. Cardiovascular: No chest pain, chest pressure or chest discomfort. No palpitations or pedal edema. Endocrine: No cold or heat intolerance. No polyuria or polydipsia. Physical exam: Constitutional: Alert, in no distress. Neck: Supple, Full range of motion. No lymphadenopathy. No palpable thyroid masses. Respiratory: Clear to auscultation. Cardiovascular: S1 S2 regular. No murmurs. Right foot: Warm and well perfused. No clubbing, cyanosis or edema. DP pulse 3+. Mildly decreased vibratory sensation. Intact sensation to monofilament. Left foot: Warm and well perfused. No clubbing, cyanosis or edema. DP pulse 3+. Mildly decreased vibratory sensation. Intact sensation to monofilament. [facility] Medical History (Updated 06/02/24 @ 13:11 by BIN Conte) Type 2 diabetes mellitus with hyperglycemia Uncontrolled diabetes mellitus Surgical History No pertinent past surgical history Family History Father Chronic arthritis Gout Diabetes mellitus Mother HTN (hypertension) Maternal Grandmother Unknown family medical history Sister No problems noted. Son No problems noted. Daughter No problems noted. Social History Housing: House Alcohol intake: never Patient Tobacco Use Status: Former Tobacco user Cigarettes Per Day: 10 e-Cigarette/Vaping Use: Never Used Second Hand Smoke Exposure: No Current occupational status: unemployed Cognitive needs: No Hearing needs: No Vision needs: No Physical Exam Vital Signs: BMI result Body Mass Index 38.8 Results Reviewed Results Reviewed: Laboratory Tests 12/12/23 04/16/24 05/11/24 10:43 14:51 08:34 Creatinine 1.00 Estimated GFR > 60 Hgb A1c (Clinic) 9.3 H Triglycerides 202 H Cholesterol 168 LDL Cholesterol, Calc 97 HDL Cholesterol 31 L Urine Creatinine 57.85 Urine Microalbumin < 5.0 Microalb/Creat Ratio TNP Assessment & Plan Assessment & Plan (1) Type 2 diabetes mellitus with hyperglycemia: Code(s): E11.65 - Type 2 diabetes mellitus with hyperglycemia Category: Medical Qualifiers: Diabetes mellitus [facility] insulin use: without rodent exterminator use Qualified Code(s): E11.65 - Type 2 diabetes mellitus with hyperglycemia Plan: In summary this is a 49-year-old male with uncontrolled type 2 diabetes on no medications currently with no known complications. Discussed pathophysiology of Type II Diabetes Mellitus with the patient in detail.? I explained the [facility] risks and complications associated with uncontrolled diabetes including nephropathy, neuropathy, peripheral vascular disease, retinopathy, increased risk of heart disease and stroke.? Discussed lifestyle modification with the patient. Recommended 30 minutes of moderately vigorous exercise 5 days per week to promote weight loss. Specifically we discussed that he needs to stop drinking soda or at least try to cut back. We reviewed treatment of hypo/hyperglycemia. The patient is referred for an eye exam. The patient declines CGM. Ordered fingerstick glucometer and instructed to bring this to visits. Refer to extension educator. Defers referral to lobster catcher. Patient has not tolerated glipizide and metformin. Resubmit Ozempic to the pharmacy. Our office can process the prior authorization needed. Side effects and administration reviewed. Patient says it is difficult getting to appointments because of his work schedule. He will call the office after he takes his 3rd injection. If he is not experiencing significant side effects I will then send a prescription for the 0.5 mg dosage. Schedule follow up in 3 months for diabetes. Orders: Referrals Ophthalmology Referral E11.65 - Type 2 diabetes mellitus with hyperglycemia Diabetes Education Referral E11.65 - Type 2 diabetes mellitus with hyperglycemia Medications: New lancets (FreeStyle Lancets) Use as directed to monitor glucose up to 3 times daily 200 ea 5RF blood-glucose meter (FreeStyle Lite Meter kit) as directed to monitor blood glucose three times daily 1 ea 0RF E11.9 - Type 2 diabetes mellitus without complications blood sugar diagnostic (FreeStyle Lite Strips) As directed to check glucose up to 3 times daily 200 ea 5RF Refilled semaglutide 0.25 mg (0.368 mL) subcut QWEEK 3 mL 0RF Patient Instructions: If you experience low blood sugar, treat this by eating a chewable fruit candy like skittles or jelly beans (about 8 pieces), 4 ounces (1/2 cup) of fruit juice (not diet), 1 tablespoon of honey or 4 glucose tablets. If your blood sugar is under 50, take double the amount of one of the above. Recheck your blood sugar in 15 minutes. Coding Level of Care Code New Pt Level 4 (55702) Complex EM visit Add On G2211 Diagnoses Type 2 diabetes mellitus with hyperglycemia, without long-term current use of insulin E11.65 Diabetes mellitus [facility] insulin use: without [facility] use Time Spent (min) 47 Comment reviewing chart, direct patient care, completing documentation
[2024-06-02 12:56] VITALS: BP 142/88; PULSE 102; BMI 38.8
[2024-06-02 13:09] LABS: Glucose, Whole Blood 320 mg/dL (60-115)
[2024-06-02 13:34] VITALS: BP 136/80
== END 2024-06-02 13:42 | disposition home or self-care (01) ==
PROVIDERS: PCP Nurse Practitioner Family; Visit Provider Physician Assistant Medical
DX: E11.65 Type 2 diabetes mellitus with hyperglycemia (principal)
CPT/HCPCS: 99204; G2211

== ENCOUNTER → 2024-06-02 12:47 | Outpatient (BNVA) | payer OTHER, SELFPAY | PROVIDERS: PCP Nurse Practitioner Family; Visit Provider Physician Assistant Medical | DX: E11.65 Type 2 diabetes mellitus with hyperglycemia (principal); E66.9 Obesity, unspecified; Z68.38 Body mass index [BMI] 38.0-38.9, adult | CPT/HCPCS: 82947; 99202 ==

== ENCOUNTER 2024-09-30 13:15 | Outpatient (AMB) | payer OTHER, SELFPAY ==
[2024-09-30 13:16] VITALS: BP 136/82; PULSE 86; O2SAT 98; BMI 38.3
--- NOTE | 2024-09-30 13:16 | A.OFFPC_ITS ---
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 Required: No Accompanied by: Self / Same As Patient Allergies lisinopril Adverse Reaction (Unknown, Verified 09/30/24 13:17) cough metformin Adverse Reaction (Unknown, Verified 09/30/24 13:17) GI upset dogs and cats Allergy (Unknown, Uncoded 06/02/24 13:00) Unknown oak Allergy (Unknown, Uncoded 06/02/24 13:00) Unknown Medication List - Last Reconciled 09/30/24 by ADAMS Hyde- amlodipine 10 mg PO DAILY 90 days blood sugar diagnostic (FreeStyle Lite Strips) patient to check blood sugar once daily blood sugar diagnostic (FreeStyle Lite Strips) As directed to check glucose up to 3 times daily blood-glucose meter (FreeStyle Lite Meter kit) patient to check blood sugar once daily blood-glucose meter (FreeStyle Lite Meter kit) as directed to monitor blood glucose three times daily carvedilol 3.125 mg PO BID hydrochlorothiazide 12.5 mg PO DAILY 90 days hydrocortisone 2.5% 1 appl topical BID PRN 14 days irbesartan 300 mg PO DAILY 90 days ketoconazole 2% 1 appl topical BID 14 days lancets (FreeStyle Lancets) Patient to check blood sugar once daily lancets (FreeStyle Lancets) Use as directed to monitor glucose up to 3 times daily pravastatin 20 mg PO DAILY 90 days semaglutide (Ozempic) 0.25 mg (0.368 mL) subcut QWEEK Tobacco use date assessed: 09/30/24 Dental Screening Dental Screen Date: 09/30/24 Did you have a dental visit in the last 12 months?: Yes Did you have a dental problem in the last 6 months where you did not have access to dental care?: No Was dental information given to patient?: Patient has dentist HPI dm follow up HPI Details Chief Complaint Uncontrolled Type 2 Diabetes Mellitus History of Present Illness The patient is a 49-year-old male presenting with uncontrolled Type 2 Diabetes Mellitus. Previously, his glycemic management has been suboptimal, reflected by a recent Hemoglobin A1c of 11.1%. He reports symptoms indicative of hyperglycemia, including polydipsia and polyuria. The patient notes he is due for an eye examination, suggesting a need for ongoing diabetic-related screening. He has a background of balanitis, contributing to specific th erapeutic contraindications, such as the inability to use an SGLT-2 inhibitor due to being uncircumcised. The patient has also experienced gastrointestinal disturbances with metformin, limiting its use. Past attempts to initiate a GLP-1 agonist were impeded by insurance coverage issues, though this has since been resolved. He has not been taking insulin previously but understands the necessity of rigorous glucose monitoring and acknowledges comprehension of hypoglycemia management. Social History - Not discussed during the visit. Health Maintenance - Patient is due for an eye examination, optometry referral made. Review of Systems Physical Exam General: Cooperative, healthy appearing, comfortable, no acute distress and well developed Orientation: Patient oriented x3 Limitations: No limitations Head: Normal to inspection Nose: Normal external nose present Face and sinus: Normal facial exam Eyes: Appearance normal, both eyes and all related structures Neck: Normal visual inspection and Yes full ROM Respiratory: Normal respiratory effort and able to speak in complete sentences. Clear to auscultation bilaterally Cardiovascular: Regular rate and rhythm. Normal S1 and S2 GI: Normal to inspection. Soft to palpation and nontender Skin: No rashes or lesions noted Neuro: Patient oriented x3 Extremities: Obese, no edema, positive sensation with use of monofilament to bilaterally feet, feet are intact bilaterally Results - Hemoglobin A1c: 11.1% Plan - Initiate therapy with Ozempic, to be s ent to the mail-order pharmacy. - Commence insulin therapy with Tresiba at a dose of 10 units. - Reinforce the importance of regular bl ood sugar monitoring and target ranges. - Patient advised to schedule and attend an eye examination. - Reapply attention to the management of Diabetes Mellitus with an manager community development, with a follow-up appointment next week. Patient was informed and verbally consented to the use of an ambient scribe for clinic note documentation during this visit. Discussion Notes I have discussed with the patient the current state of his Type 2 Diabetes Mellitus and the necessity for improved management. The initiation of Ozempic was advised after resolving insurance matters. Insulin therapy with Tresiba will begin at 10 units and is necessary to manage his elevated HbA1c levels effectively. I reviewed the symptoms and management of hypoglycemia in detail and provided reassurance regarding the initiation of insulin therapy. The patient declined all vaccinations at this time. I emphasized the importance of regular attendance at follow-up appointments, particularly with the manager community development next week, and encouraged the patient to follow through with his eye examination. Patient Instructions - Begin Ozempic as prescribed, refilled through mail order. - Start Tresiba insulin at 10 units giacomo y. - Check blood sugar levels regularly and maintain within target ranges. - Be vigilant for signs of low blood sug ar and understand how to manage it. - Schedule an eye examination as soon as possible. - Follow up with endocrinology next week as scheduled. - Seek medical attention if you experien ce symptoms of hypoglycemia or any new concerning symptoms. [facility] Medical History Type 2 diabetes mellitus with hyperglycemia Uncontrolled diabetes mellitus Surgical History No pertinent past surgical history Family History Father Chronic arthritis Gout Diabetes mellitus Mother HTN (hypertension) Maternal Grandmother Unknown family medical history Sister No problems noted. Son No problems noted. Daughter No problems noted. Social History Housing: House Alcohol intake: never Patient Tobacco Use Status: Former Tobacco user Cigarettes Per Day: 10 e-Cigarette/Vaping Use: Never Used Second Hand Smoke Exposure: No Current occupational status: unemployed Cognitive needs: No Hearing needs: No Vision needs: No Questionnaire PHQ-9 Over the last 2 weeks, how often have you been bothered by any of the following problems? 1. Little interest or pleasure in doing things: several days 2. Feeling down, depressed, or hopeless: not at all 3. Trouble falling or staying asleep, or sleeping too much: several days 4. Feeling tired or having little energy: several days 5. Poor appetite or overeating: several days 6. Feeling bad about yourself - or that you are a failure or have let yourself or your family down: not at all 7. Trouble concentrating on things, such as reading the newspaper or watching television: several days 8. Moving or speaking so slowly that other people could have noticed. Or the opposite - being so fidgety or restless that you have been moving around a lot more than usual: not at all 9. Thoughts that you would be better off or of hurting yourself in some way: not at all Total score: 5 Depression Screening Interpretation: Negative Depression Screening Done: Yes 38252 - PHQ-9 Billing: Yes Source: Developed by Drs. Benjamin Cevallos, Mis Romero, Parth Medina and colleagues, with an educational kadi from [employer]. Thrive Questionnaire Date Thrive assessed: 09/30/24 I am a: Patient What is your living situation today?: I have a steady place to live Within the past 12 months, did the food you bought not last and you didn't have the money to get more?: Never true Within the past 12 months, did you worry whether your food would run out before you got money to buy more?: Never true Do you have trouble paying for medicines?: No Do you have trouble getting transportation to medical appointments?: No Do you have trouble paying your heating and electricity bill?: No Do you have trouble taking care of your child, family member or friend?: No Do you have trouble with day-to-day activities such as bathing, preparing meals, shopping, managing finances, etc.?: No Are you currently unemployed and looking for a job?: No Are you interested in more education?: No Please select the resources that you would like help with: None Currently or been in a relationship where the following occur: No concerns reported THRIVE Score: 0 AUDIT C Alcohol Use Questionnaire (AUDIT-C) 1. How often do you have a drink containing alcohol?: Never 3. How often do you have six or more drinks on one occasion?: Never Total Score: 0 Score Reviewed/Action Taken: Yes ARLETH-7 AMB Questionnaire ARLETH-7 Date ARLETH - 7 assessed: 09/30/24 Feeling nervous, anxious, or on edge: 0 = Not at all Not being able to stop or control worryin = Not at all Worrying too much about different things: 1 = Several days Trouble relaxin = Several days Being so restless that it is hard to sit still: 0 = Not at all Becoming easily annoyed or irritable: 1 = Several days Feeling afraid as if something awful might happen: 1 = Several days Total ARLETH-7 score (0-4 normal; 5-9 mild; 10-14 moderate; 15-21 severe): 4 Source: Developed by Drs. Benjamin Cevallos, Mis Romero, Parth Medina and colleagues, with an educational kadi from [employer]. ARLETH-7 Assessment Billing ARLETH-7 Assessment Tool: ARLETH-7 Assessment 25780 Physical exam (Primary Care) Vital Signs: Last Vital Signs Pulse 86 09/30/24 13:16 BP 136/82 09/30/24 13:16 Pulse Ox 98 09/30/24 13:16 Oxygen Delivery Method Room Air 09/30/24 13:16 BMI result Body Mass Index 38.3 Tobacco/Smoking Status: Tobacco use Status Tobacco use date assessed 09/30/24 09/30/24 13:18 Patient Tobacco Use Status Former Tobacco user 09/30/24 13:18 e-Cigarette/Vaping Use Never Used 09/30/24 13:18 PHQ-9: PHQ-9 Score PHQ-9: Total score 5 09/30/24 14:13 Depression Screening Interpretation: Negative Thrive Assessment: Date of Thrive Assessment Date Thrive assessed 09/30/24 09/30/24 13:18 Currently or been in a relationship where the following occur: No concerns reported Results AMB Hemoglobin A1c AMB Hemoglobin A1c 11.1 % Last Edit by Rickie Eden CMA on 09/30/24 13 :44 Results Reviewed Results Reviewed: Laboratory Last Values Hgb A1c (Clinic) 11.1 % (4.0-6.0) H 09/30/24 13:44 Coding Level of Care Code Est Pt Level 3 (62127) Diagnoses Uncontrolled diabetes mellitus E11.65 Additional Codes ARLETH-7 Assessment Billing - ARLETH-7 Assessment Tool: ARLETH-7 Assessment 65356 ([id number]) PHQ-9 - 58558 - PHQ-9 Billing: Yes ([id number]) Assessment & Plan Assessment & Plan (1) Uncontrolled diabetes mellitus: Code(s): E11.65 - Type 2 diabetes mellitus with hyperglycemia Category: Medical Plan . Orders: Orders AMB Hemoglobin A1c Today Z13.9 - Encounter for screening, unspecified Comprehensive [place]. Panel Fast Today E11.65 - Type 2 diabetes mellitus with hyperglycemia TSH reflex Free T4 Today E11.65 - Type 2 diabetes mellitus with hyperglycemia Microalbumin, Random (w Creat) Today E11. - Type 2 diabetes mellitus with hyperglycemia Complete Blood Count Auto Diff Today E11. - Type 2 diabetes mellitus with hyperglycemia UA CC w/rflx Micro + Cult Today E11. - Type 2 diabetes mellitus with hyperglycemia Lipid Panel Today E11. - Type 2 diabetes mellitus with hyperglycemia Referrals Ophthalmology Referral E11. - Type 2 diabetes mellitus with hyperglycemia Medications: New insulin degludec (Tresiba FlexTouch U-100 insulin) 10 units (0.1 mL) subcut DAILY 15 mL 1RF pen needle, diabetic (Comfort EZ Pen [place]) daily use with tresiba 100 ea 0RF diabetes Changed From semaglutide (Ozempic) 0.5 mg (0.736 mL) subcut QWEEK 3 mL 0RF To semaglutide (Ozempic) 0.25 mg (0.368 mL) subcut QWEEK 3 mL 0RF Refilled semaglutide (Ozempic) 0.25 mg (0.368 mL) subcut QWEEK 3 mL 0RF
== END 2024-09-30 16:06 | disposition home or self-care (01) ==
PROVIDERS: PCP Nurse Practitioner Family; Visit Provider Nurse Practitioner Family
DX: E11.65 Type 2 diabetes mellitus with hyperglycemia (principal); Z13.9 Encounter for screening, unspecified

== ENCOUNTER → 2024-09-30 13:15 | Outpatient (BNVA) | payer OTHER, SELFPAY | PROVIDERS: PCP Nurse Practitioner Family; Visit Provider Nurse Practitioner Family | DX: E11.65 Type 2 diabetes mellitus with hyperglycemia (principal) | CPT/HCPCS: 83036; 96127; 99212 ==

== ENCOUNTER 2024-10-20 13:51 | Outpatient (AMB) | payer OTHER, SELFPAY ==
--- NOTE | 2024-10-20 13:52 | A.OFFVIS_ITS ---
Vital Signs 10/20/24 13:55 Height 6 ft 1 in Weight 290 lb 5.581 oz BMI 38.3 BP 132/92 H Blood Pressure Location Rt brachial Position Sitting Pulse 86 Pulse Source Pulse Oximeter Intake Visit Reasons: T2DM Intake Note: Patient present today to follow up on Type 2 Diabetes Mellitus. Last Diabetic Eye exam: Due, over 1 year Last Podiatry Visit: Does not see a Welding Supervisor Random Glucose: 272 mg/dl HgA1C: 11.1% 09/30/2024 Environmental Management Specialist Required: No Accompanied by: Self / Same As Patient Allergies lisinopril Adverse Reaction (Unknown, Verified 10/20/24 13:56) cough dogs and cats Allergy (Unknown, Uncoded 10/20/24 13:56) Unknown oak Allergy (Unknown, Uncoded 10/20/24 13:56) Unknown HPI Comments Details: This is a 49-year-old male with a past medical history of type 2 diabetes, hypertension and obesity presenting for diabetic management. He was diagnosed with diabetes about 5 years ago. Hemoglobin a1c 11.1% 09/30/2024. He does not have a glucometer of his own. He uses a family members glucometer at home. He doesn't check BG regularly. He started Ozempic 0.25 mg. He took the 1st injection 4 days ago. Tresiba was prescribed, but it is not covered by his insurance. Current medication regimen: Ozempic 0.25 mg. Trulicity was tolerated, but it was stopped because it was back ordered. Patient reports he was on 2000 mg of metformin total daily in the past which caused diarrhea. He does not know if it was extended release. Glipizde made him feel woozy and dizzy so it was discontinued. SGLT2-not prescribed due to balantitis and being uncircumcised. Diet: Breakfast-nothing Lunch-fast food like mcdonalds, burger, fries and soda Dinner-rice, hungarian fries, pork chops, chicken, vegetables Snacks/desserts: chips, no candy or dessert He has cut back on Pepsi to 1-2 cans a day. Previously was drinking 4-8 cans. Hypoglycemia symptoms: no symptoms or episodes Hyperglycemia symptoms: Polyuria, polydipsia Eye exam: due. He was referred anew to [facility] by his PCP this month. Microvascular complications: neuropathy in feet Macrovascular complications: none Hypertension: treated with your valsartan, hydrochlorothiazide, amlodipine, carvedilol. His blood pressure is suboptimal today, but he had a caffeinated soda before the appointment. Hyperlipidemia: treated with pravastatin 20 mg. ROS: Constitutional: No unexplained weight loss, fever, chills, fatigue or night sweats. Respiratory: No shortness of breath, cough or sputum production. Cardiovascular: No chest pain, chest pressure or chest discomfort. No palpitations or pedal edema. Endocrine: No cold or heat intolerance. No polyuria or polydipsia. Physical exam: Constitutional: Alert, in no distress. Neck: Supple, Full range of motion. No lymphadenopathy. No palpable thyroid masses. Respiratory: Clear to auscultation. Cardiovascular: S1 S2 regular. No murmurs. Feet: No open wounds. Warm and well perfused. No clubbing, cyanosis or edema. DP pulse 3+. Mildly decreased vibratory sensation. Intact sensation to monofilament. [facility] Medical History Type 2 diabetes mellitus with hyperglycemia Uncontrolled diabetes mellitus Surgical History No pertinent past surgical history Family History Father Chronic arthritis Gout Diabetes mellitus Mother HTN (hypertension) Maternal Grandmother Unknown family medical history Sister No problems noted. Son No problems noted. Daughter No problems noted. Social History Housing: House Alcohol intake: never Patient Tobacco Use Status: Former Tobacco user Cigarettes Per Day: 10 e-Cigarette/Vaping Use: Never Used Second Hand Smoke Exposure: No Current occupational status: unemployed Cognitive needs: No Hearing needs: No Vision needs: No Physical Exam Vital Signs: Last Vital Signs Pulse 86 10/20/24 13:55 BP 132/92 H 10/20/24 13:55 BMI result Body Mass Index 38.3 Results Reviewed Results Reviewed: Laboratory Last Values Glucose (Clinic) 272 mg/dL (60-115) H 10/20/24 14:04 Laboratory Tests 12/12/23 04/16/24 05/11/24 10:43 14:51 08:34 Creatinine 1.00 Estimated GFR > 60 Hgb A1c (Clinic) 9.3 H Triglycerides 202 H Cholesterol 168 LDL Cholesterol, Calc 97 HDL Cholesterol 31 L TSH 2.67 Urine Creatinine 57.85 Urine Microalbumin < 5.0 Microalb/Creat Ratio [facility] 09/30/24 13:44 Creatinine Estimated GFR Hgb A1c (Clinic) 11.1 H Triglycerides Cholesterol LDL Cholesterol, Calc HDL Cholesterol TSH Urine Creatinine Urine Microalbumin Microalb/Creat Ratio Assessment & Plan Assessment & Plan (1) Type 2 diabetes mellitus with hyperglycemia: Code(s): E11.65 - Type 2 diabetes mellitus with hyperglycemia Category: Medical Qualifiers: Diabetes mellitus penitentiary insulin use: without manager long term care use Qualified Code(s): E11.65 - Type 2 diabetes mellitus with hyperglycemia Plan: In summary this is a 49-year-old male with uncontrolled type 2 diabetes with neuropathy. Continue Ozempic 0.25 mg weekly which he just started this week. We will plan to titrate this based on tolerability and response. Start Lantus 10 units every evening. We discussed prandial insulin. He is not prepared to start this. Reinitiate metformin, extended release formula, 500 mg in the morning. Take with food. If he develops diarrhea again he will discontinue it and contact the office. Discussed pathophysiology of Type II Diabetes Mellitus with the patient in detail.? I explained the manager long term care risks and complications associated with uncontrolled diabetes including nephropathy, neuropathy, peripheral vascular disease, retinopathy, increased risk of heart disease and stroke.? Discussed lifestyle modification with the patient. Recommended 30 minutes of moderately vigorous exercise 5 days per week to promote weight loss. We reviewed treatment of hypo/hyperglycemia. Written instructions provided for patient. He will set up his eye exam. Patient's insurance does not cover CGM unless he is on 3 injections of insulin or more a day. Ordered glucometer and supplies. We confirmed with the pharmacy that they are covered by insurance, and he can pick them up today. Declines referral to breastfeeding educator and dietitian. Return to the lab for blood work. Follow up in 3 weeks for type 2 diabetes. Orders: Orders B Type Natriuretic Peptide Today E11.9 - Type 2 diabetes mellitus without complications Medications: New metformin ER 500 mg PO DAILY 90 tabs 0RF lancets (OneTouch Delica Plus Lancet) Use as directed to check blood glucose three times daily. 100 ea 5RF blood sugar diagnostic (OneTouch Verio test strips) Use as directed to check blood glucose three times daily. 100 ea 5RF blood-glucose meter (OneTouch Verio Flex Meter) Use as directed to check blood glucose three times daily 1 ea 0RF glucose (Dex4 Glucose Quick Dissolve) until symptoms of low blood sugar are controlled 16 grams (4 x 4 gram) PO Q15M PRN 10 tabs 3RF hypoglycemia Changed From insulin degludec (Tresiba FlexTouch U-100 insulin) 10 units (0.1 mL) subcut DAILY 15 mL 1RF To Tresiba FlexTouch U-100 (insulin degludec) 10 units (0.1 mL) subcut .QHS 15 mL 1RF NS Discontinued lancets (FreeStyle Lancets) Discontinued Reason: Doctor's Order Patient to check blood sugar once daily 100 ea 0RF E11.65 - Type 2 diabetes mellitus with hyperglycemia, E11.9 - Type 2 diabetes mellitus without complications blood-glucose meter (FreeStyle Lite Meter kit) Discontinued Reason: Doctor's Order patient to check blood sugar once daily 1 ea 0RF E11.65 - Type 2 diabetes mellitus with hyperglycemia, E11.9 - Type 2 diabetes mellitus without complications blood sugar diagnostic (FreeStyle Lite Strips) Discontinued Reason: Doctor's Order patient to check blood sugar once daily 100 ea 0RF E11.65 - Type 2 diabetes mellitus with hyperglycemia, E11.9 - Type 2 diabetes mellitus without complications lancets (FreeStyle Lancets) Discontinued Reason: Doctor's Order Use as directed to monitor glucose up to 3 times daily 200 ea 5RF blood-glucose meter (FreeStyle Lite Meter kit) Discontinued Reason: Doctor's Order as directed to monitor blood glucose three times daily 1 ea 0RF E11.9 - Type 2 diabetes mellitus without complications blood sugar diagnostic (FreeStyle Lite Strips) Discontinued Reason: Doctor's Order As directed to check glucose up to 3 times daily 200 ea 5RF Patient Instructions: If you experience low blood sugar, treat this by eating a chewable fruit candy like skittles or jelly beans (about 8 pieces), 4 ounces (1/2 cup) of fruit juice (not diet), 1 tablespoon of honey or 4 glucose tablets. If your blood sugar is under 50, take double the amount of one of the above. Recheck your blood sugar in 15 minutes. Start Tresiba 10 units at bedtime. Continue Ozempic 0.25 mg weekly for now. We will plan to increase this after the first month. Start Metformin extended release 500 mg daily with food. I sent the glucometer and supplies and glucose tablets to the pharmacy. If you can't pickling operator any of these prescription call the endocrinology office. Coding Level of Care Code Est Pt Level 4 (14397) Complex EM visit Add On G2211 Diagnoses Type 2 diabetes mellitus with hyperglycemia, without long-term current use of insulin E11.65 Diabetes mellitus penitentiary insulin use: without penitentiary use
[2024-10-20 13:55] VITALS: BP 132/92; PULSE 86; BMI 38.3
[2024-10-20 14:10] LABS: Glucose, Whole Blood 272 mg/dL (60-115)
== END 2024-10-20 14:46 | disposition home or self-care (01) ==
PROVIDERS: PCP Nurse Practitioner Family; Visit Provider Physician Assistant Medical
DX: E11.65 Type 2 diabetes mellitus with hyperglycemia (principal)

== ENCOUNTER → 2024-10-20 13:51 | Outpatient (BNVA) | payer OTHER, SELFPAY | PROVIDERS: PCP Nurse Practitioner Family; Visit Provider Physician Assistant Medical | DX: E11.65 Type 2 diabetes mellitus with hyperglycemia (principal); E66.9 Obesity, unspecified; Z68.38 Body mass index [BMI] 38.0-38.9, adult | CPT/HCPCS: 82947; 99212 ==

== ENCOUNTER 2024-11-10 10:45 | Outpatient (AMB) | payer OTHER, SELFPAY ==
--- NOTE | 2024-11-10 10:48 | MHC.OFFVIS ---
Vital Signs 11/10/24 10:50 Height 6 ft 1 in Weight 287 lb 14.779 oz BMI 38.0 BP 136/92 H Blood Pressure Location Rt brachial Position Sitting Pulse 97 Pulse Source Pulse Oximeter Pulse Oximetry (%) 97 Oxygen Delivery Method Room Air Intake Visit Reasons: T2DM Intake Note: Patient present today to follow up on Type 2 Diabetes Mellitus. Last Diabetic Eye exam: Over 1 year Last Podiatry Visit: Does not see a Blueprinting Machine Operator Random Glucose: 230 mg/dl HgA1C: 11.1% 09/30/2024 Director Operations Broadcast Required: No Accompanied by: Self / Same As Patient Allergies lisinopril Adverse Reaction (Unknown, Verified 11/10/24 10:50) cough dogs and cats Allergy (Unknown, Uncoded 11/10/24 10:50) Unknown oak Allergy (Unknown, Uncoded 11/10/24 10:50) Unknown HPI Comments Details: This is a 49-year-old male with a past medical history of type 2 diabetes, hypertension and obesity presenting for diabetic management. He was diagnosed with diabetes about 5 years ago. Hemoglobin a1c 11.1% 09/30/2024. His insurance does not cover a CGM. He is using a glucometer every morning now to check his blood sugar, and it is consistently in the 220s and 230s after eating. He forgot to bring it with him today. Current medication regimen: Ozempic 0.25 mg and Lantus 10 units nightly He did not start metformin extended release 500 mg daily because he is concerned about low blood sugar. Past medications: Trulicity was tolerated, but it was stopped because it was back ordered. Patient reports he was on 2000 mg of metformin total daily in the past which caused diarrhea. He does not know if it was extended release. Glipizde made him feel woozy and dizzy so it was discontinued. SGLT2-not prescribed due to balantitis and being uncircumcised. He is happy that his blood sugars are improving, and he notices that since he started Ozempic he is not craving Pepsi as much. A 24 pack use the last 3 days. Now a 24 pack last 2 weeks. He has lost 3 lb on the medication. He is drinking more water. Hypoglycemia symptoms: no symptoms or episodes Hyperglycemia symptoms: Polyuria, polydipsia Eye exam: due. Microvascular complications: neuropathy in feet Macrovascular complications: none Hypertension: treated with your valsartan, hydrochlorothiazide, amlodipine, carvedilol. His blood pressure is still suboptimal today. Hyperlipidemia: treated with pravastatin 20 mg. ROS: Constitutional: No unexplained weight loss, fever, chills, fatigue or night sweats. Respiratory: No shortness of breath, cough or sputum production. Cardiovascular: No chest pain, chest pressure or chest discomfort. No palpitations or pedal edema. Endocrine: No cold or heat intolerance. No polyuria or polydipsia. Physical exam: Constitutional: Alert, in no distress. Neck: Supple, Full range of motion. No lymphadenopathy. No palpable thyroid masses. Respiratory: Clear to auscultation. Cardiovascular: S1 S2 regular. No murmurs. [facility] Medical History Type 2 diabetes mellitus with hyperglycemia Uncontrolled diabetes mellitus Surgical History No pertinent past surgical history Family History Father Chronic arthritis Gout Diabetes mellitus Mother HTN (hypertension) Maternal Grandmother Unknown family medical history Sister No problems noted. Son No problems noted. Daughter No problems noted. Social History Housing: House Alcohol intake: never Patient Tobacco Use Status: Former Tobacco user Cigarettes Per Day: 10 e-Cigarette/Vaping Use: Never Used Second Hand Smoke Exposure: No Current occupational status: unemployed Cognitive needs: No Hearing needs: No Vision needs: No Physical Exam Vital Signs: Last Vital Signs Pulse 97 11/10/24 10:50 BP 136/92 H 11/10/24 10:50 Pulse Ox 97 11/10/24 10:50 Oxygen Delivery Method Room Air 11/10/24 10:50 BMI result Body Mass Index 38.0 Results Reviewed Results Reviewed: Laboratory Last Values Glucose (Clinic) 230 mg/dL (60-115) H 11/10/24 10:56 Laboratory Tests 12/12/23 04/16/24 05/11/24 10:43 14:51 08:34 Creatinine 1.00 Estimated GFR > 60 Hgb A1c (Clinic) 9.3 H Triglycerides 202 H Cholesterol 168 LDL Cholesterol, Calc 97 HDL Cholesterol 31 L TSH 2.67 Urine Creatinine 57.85 Urine Microalbumin < 5.0 Microalb/Creat Ratio [facility] 09/30/24 13:44 Creatinine Estimated GFR Hgb A1c (Clinic) 11.1 H Triglycerides Cholesterol LDL Cholesterol, Calc HDL Cholesterol TSH Urine Creatinine Urine Microalbumin Microalb/Creat Ratio Assessment & Plan Assessment & Plan (1) Type 2 diabetes mellitus with hyperglycemia: Code(s): E11.65 - Type 2 diabetes mellitus with hyperglycemia Category: Medical Qualifiers: Diabetes mellitus prison insulin use: without joint terminal attack controller use Qualified Code(s): E11.65 - Type 2 diabetes mellitus with hyperglycemia Plan: In summary this is a 49-year-old male with uncontrolled type 2 diabetes with neuropathy. Increase Ozempic to 0.5 mg weekly. We will plan to titrate this based on tolerability and response. Continue Lantus 10 units every evening. He can hold off on starting metformin at this time. Discussed pathophysiology of Type II Diabetes Mellitus with the patient in detail.? I explained the joint terminal attack controller risks and complications associated with uncontrolled diabetes including nephropathy, neuropathy, peripheral vascular disease, retinopathy, increased risk of heart disease and stroke.? Discussed lifestyle modification with the patient. Recommended 30 minutes of moderately vigorous exercise 5 days per week to promote weight loss. We reviewed treatment of hypo/hyperglycemia. He has been provided with written instructions. He will set up his eye exam. Patient's insurance does not cover CGM unless he is on 3 injections of insulin or more a day. The patient will bring his glucometer to the next appointment. Declines referral to heat seal operator and dietitian. Return to the lab for blood work. Follow up in 3 weeks for type 2 diabetes. (2) HTN (hypertension): Code(s): I10 - Essential (primary) hypertension Category: Medical Plan: Uncontrolled. Continue caffeine reduction and avoidance of sodium. Stop hydrochlorothiazide and switch to indapamide 1.25 mg daily. Side effects reviewed including low potassium and complications of this, weakness, dizziness, urinary frequency, dehydration, RADHIKA. Patient advised to return to lab a week after starting the medication to check renal function and electrolytes. He agrees. If the medication causes side effects he can stop it and switch back to hydrochlorothiazide. Orders: Orders Basic Metabolic Panel Today E11.65 - Type 2 diabetes mellitus with hyperglycemia Medications: New semaglutide (Ozempic) 0.5 mg (0.736 mL) subcut QWEEK 3 mL 0RF indapamide 1.25 mg PO QAM 90 tabs 0RF Discontinued hydrochlorothiazide Discontinued Reason: Doctor's Order 12.5 mg PO DAILY 90 days 90 tabs 1RF semaglutide (Ozempic) Discontinued Reason: Doctor's Order 0.25 mg (0.368 mL) subcut QWEEK 3 mL 0RF Patient Instructions: Continue Lantus 10 units nightly Increase Ozempic 0.5 mg weekly. Stop hydrochlorothiazide 12.5 mg daily. Start Indapamide 1.25 mg daily. If you feel weak, tired or dizzy on the new blood pressure medication, call the office. Stop taking it and go to back hydrochlorothiazide 12.5 mg daily. Please go to the lab 1 week after you start the new blood pressure medication. Coding Level of Care Code Est Pt Level 4 (49694) Complex EM visit Add On G2211 Diagnoses Type 2 diabetes mellitus with hyperglycemia, without long-term current use of insulin E11.65 Diabetes mellitus joint terminal attack controller insulin use: without prison use HTN (hypertension) I10
[2024-11-10 10:50] VITALS: BP 136/92; PULSE 97; O2SAT 97; BMI 38.0
[2024-11-10 11:01] LABS: Glucose, Whole Blood 230 mg/dL (60-115)
== END 2024-11-10 11:35 | disposition home or self-care (01) ==
PROVIDERS: PCP Nurse Practitioner Family; Visit Provider Physician Assistant Medical
DX: E11.65 Type 2 diabetes mellitus with hyperglycemia (principal); I10 Essential (primary) hypertension

== ENCOUNTER → 2024-11-10 10:45 | Outpatient (BNVA) | payer OTHER, SELFPAY | PROVIDERS: PCP Nurse Practitioner Family; Visit Provider Physician Assistant Medical | DX: E11.65 Type 2 diabetes mellitus with hyperglycemia (principal); I10 Essential (primary) hypertension; Z79.4 Long term (current) use of insulin; Z79.899 Other long term (current) drug therapy | CPT/HCPCS: 82947; 99212 ==

== ENCOUNTER 2024-12-08 08:47 | Outpatient (AMB) | payer OTHER, SELFPAY ==
--- NOTE | 2024-12-08 09:02 | MHC.OFFVIS ---
Vital Signs 12/08/24 09:06 Height 6 ft 1 in Weight 288 lb 9.361 oz BMI 38.1 BP 134/92 H Blood Pressure Location Rt brachial Position Sitting Pulse 92 Pulse Source Pulse Oximeter Pulse Oximetry (%) 97 Oxygen Delivery Method Room Air Intake Visit Reasons: Type 2 DM Intake Note: Patient present today to follow up on Type 2 Diabetes Mellitus. 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 blood-glucose meter (TalkrayTouch Verio Flex Meter) Use as directed to check blood glucose three times daily carvedilol 3.125 mg PO BID glucose (Dex4 Glucose Quick Dissolve) 16 grams (4 x 4 gram) PO Q15M PRN hydrocortisone 2.5% 1 appl topical BID PRN 14 days indapamide 1.25 mg PO QAM insulin glargine (Lantus Solostar U-100 Insulin) 10 units (0.1 mL) subcut .qhs irbesartan 300 mg PO DAILY 90 days ketoconazole 2% 1 appl topical BID 14 days lancets (TalkrayTouch Delica Plus Lancet) Use as directed to check blood glucose three times daily. metformin ER 500 mg PO DAILY pen needle, diabetic (Comfort EZ Pen [place]) daily use with tresiba pen needle, diabetic (BD Krystina 2nd Gen Pen Needle) As directed to inject insulin once daily pravastatin 20 mg PO DAILY 90 days semaglutide (Ozempic) 1 mg (0.75 mL) subcut QWEEK HPI Comments Details: This is a 49-year-old male with a past medical history of type 2 diabetes, hypertension and obesity presenting for diabetic management. He was diagnosed with diabetes about 5 years ago. Hemoglobin a1c 11.1% 09/30/2024. His insurance does not cover a CGM. He forgot the glucometer today but he reports that his fasting sugars have been in the 120s, and he checks after lunch and his blood sugars are 120-140. One hundred forty-eight was the highest blood sugar since he increase the dose of Ozempic. Current medication regimen: Ozempic 0.5 mg and Lantus 10 units nightly He did not start metformin extended release 500 mg daily, and we put this on hold. Past medications: Trulicity was tolerated, but it was stopped because it was back ordered. Patient reports he was on 2000 mg of metformin total daily in the past which caused diarrhea. He does not know if it was extended release. Glipizide made him feel woozy and dizzy so it was discontinued. SGLT2-not prescribed due to balantitis and being uncircumcised. He is happy that his blood sugars are improving. He used to drink a 24 pack of Pepsi every 3 days. He stopped drinking Pepsi completely and only drinks 3 cans of sprite per day. He is drinking more water. Hypoglycemia symptoms: no symptoms or episodes Hyperglycemia symptoms: Polyuria, polydipsia. Microvascular complications: neuropathy in feet Macrovascular complications: none Hypertension: treated with your valsartan, hydrochlorothiazide, amlodipine, carvedilol. His blood pressure is still suboptimal today. When I reviewed his medications he said he is only taking carvedilol once per day instead of twice per day. Hyperlipidemia: treated with pravastatin 20 mg. ROS: Constitutional: No unexplained weight loss, fever, chills, fatigue or night sweats. Respiratory: No shortness of breath, cough or sputum production. Cardiovascular: No chest pain, chest pressure or chest discomfort. No palpitations or pedal edema. Endocrine: No cold or heat intolerance. No polyuria or polydipsia. Physical exam: Constitutional: Alert, in no distress. Neck: Supple, Full range of motion. No lymphadenopathy. No palpable thyroid masses. Respiratory: Clear to auscultation. Cardiovascular: S1 S2 regular. No murmurs. [facility] Medical History Type 2 diabetes mellitus with hyperglycemia Uncontrolled diabetes mellitus Surgical History No pertinent past surgical history Family History Father Chronic arthritis Gout Diabetes mellitus Mother HTN (hypertension) Maternal Grandmother Unknown family medical history Sister No problems noted. Son No problems noted. Daughter No problems noted. Social History Housing: House Alcohol intake: never Patient Tobacco Use Status: Former Tobacco user Cigarettes Per Day: 10 e-Cigarette/Vaping Use: Never Used Second Hand Smoke Exposure: No Current occupational status: unemployed Cognitive needs: No Hearing needs: No Vision needs: No Physical Exam Vital Signs: BMI result Body Mass Index 38.1 Results Reviewed Results Reviewed: Laboratory Tests 12/12/23 04/16/24 05/11/24 10:43 14:51 08:34 Creatinine 1.00 Estimated GFR > 60 Hgb A1c (Clinic) 9.3 H Triglycerides 202 H Cholesterol 168 LDL Cholesterol, Calc 97 HDL Cholesterol 31 L TSH 2.67 Urine Creatinine 57.85 Urine Microalbumin < 5.0 Microalb/Creat Ratio [place] 09/30/24 13:44 Creatinine Estimated GFR Hgb A1c (Clinic) 11.1 H Triglycerides Cholesterol LDL Cholesterol, Calc HDL Cholesterol TSH Urine Creatinine Urine Microalbumin Microalb/Creat Ratio Assessment & Plan Assessment & Plan (1) Type 2 diabetes mellitus with hyperglycemia: Code(s): E11.65 - Type 2 diabetes mellitus with hyperglycemia Category: Medical Qualifiers: Diabetes mellitus termite control service representative insulin use: without termite control service representative use Qualified Code(s): E11.65 - Type 2 diabetes mellitus with hyperglycemia Plan: In summary this is a 49-year-old male with uncontrolled type 2 diabetes with neuropathy who reports improved glycemic control. Increase Ozempic to 1 mg weekly and try stopping Lantus 10 units. If blood sugars stay in target range between 70-180 he can remain off Lantus. If his fasting sugars are above 140 or postprandial sugars above 180 he will call the office. Discussed pathophysiology of Type II Diabetes Mellitus with the patient in detail.? I explained the nursing home risks and complications associated with uncontrolled diabetes including nephropathy, neuropathy, peripheral vascular disease, retinopathy, increased risk of heart disease and stroke.? Discussed lifestyle modification with the patient. Recommended 30 minutes of moderately vigorous exercise 5 days per week to promote weight loss. We reviewed treatment of hypo/hyperglycemia. He has been provided with written instructions. He will set up his eye exam. Patient says he will have blood work done tomorrow. Patient's insurance does not cover CGM unless he is on 3 injections of insulin or more a day. The patient will bring his glucometer to the next appointment. Declines referral to personal development educator and dietitian. Follow up in 4 weeks for type 2 diabetes. (2) HTN (hypertension): Code(s): I10 - Essential (primary) hypertension Category: Medical Qualifiers: Hypertension type: primary hypertension Qualified Code(s): I10 - Essential (primary) hypertension Plan: Uncontrolled. He stopped drinking caffeine. He needs to decrease sodium in his diet. He does not smoke. He does not drink alcohol. He likes to eat a lot of salty foods. Continue indapamide, amlodipine and irbesartan. Advised patient he needs to take carvedilol twice per day. Refer to nephrology. Plan Follow up in 4 weeks for type 2 diabetes. Orders: Referrals Nephrology Referral I10 - Essential (primary) hypertension Medications: New semaglutide (Ozempic) 1 mg (0.75 mL) subcut QWEEK 3 mL 1RF Discontinued semaglutide (Ozempic) Discontinued Reason: Doctor's Order 0.5 mg (0.736 mL) subcut QWEEK 3 mL 0RF On Hold insulin glargine (Lantus Solostar U-100 Insulin) Hold Comment: Doctor's Order 10 units (0.1 mL) subcut .qhs 15 mL 3RF Patient Instructions: Take Carvedilol 3.125 mg TWICE DAILY. Increase Ozempic to 1 mg weekly and try stopping Lantus. If blood sugars stay within 70-180 throughout the day, you can stay off Lantus. If fasting sugars in the morning are over 140 or if sugars after eating are over 180 call the office. Coding Level of Care Code Est Pt Level 4 (23965) Complex EM visit Add On G2211 Diagnoses Type 2 diabetes mellitus with hyperglycemia, without long-term current use of insulin E11.65 Diabetes mellitus nursing home insulin use: without termite control service representative use Primary hypertension I10 Hypertension type: primary hypertension
[2024-12-08 09:06] VITALS: BP 134/92; PULSE 92; O2SAT 97; BMI 38.1
[2024-12-08 09:15] LABS: Glucose, Whole Blood 161 mg/dL (60-115)
== END 2024-12-08 09:36 | disposition home or self-care (01) ==
LOC: HO.ENCR 08:48
PROVIDERS: PCP Nurse Practitioner Family; Visit Provider Physician Assistant Medical
DX: E11.65 Type 2 diabetes mellitus with hyperglycemia (principal); I10 Essential (primary) hypertension

== ENCOUNTER → 2024-12-08 08:47 | Outpatient (BNVA) | payer OTHER, SELFPAY | PROVIDERS: PCP Nurse Practitioner Family; Visit Provider Physician Assistant Medical | DX: E11.65 Type 2 diabetes mellitus with hyperglycemia (principal); I10 Essential (primary) hypertension; Z79.4 Long term (current) use of insulin; Z79.84 Long term (current) use of oral hypoglycemic drugs | CPT/HCPCS: 82947; 99212 ==

== ENCOUNTER 2024-12-17 10:10 | Outpatient (AMB) | payer OTHER, SELFPAY ==
--- NOTE | 2024-12-17 10:23 | HO.NEPHOV_ITS ---
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 He is currently unemployed but used to work in [place] before. He has a poorly controlled diabetic and his medications are being adjusted. His last hemoglobin A1c was over 11. He denies retinopathy, proteinuria, peripheral arterial disease, carotid stenosis, coronary artery disease, CVA, congestive heart failure. He denies taking nonsteroidal anti-inflammatories or any drugs. His renal functions have been stable. He has very strong family history hypertension. He is not very good with his diet. He denies chest pain, palpitation, shortness of breath, paroxysmal nocturnal dyspnea, orthopnea, pedal edema, orthostatic symptoms, hematuria. He claims to be compliant with his medications. His blood pressure has been labile and some medications have been adjusted lately. [facility] Medical History Type 2 diabetes mellitus with hyperglycemia Uncontrolled diabetes mellitus Surgical History No pertinent past surgical history Family History Father Chronic arthritis Gout Diabetes mellitus Mother HTN (hypertension) Maternal Grandmother Unknown family medical history Sister No problems noted. Son No problems noted. Daughter No problems noted. Social History Housing: House Alcohol intake: never Patient Tobacco Use Status: Former Tobacco user Cigarettes Per Day: 10 e-Cigarette/Vaping Use: Never Used Second Hand Smoke Exposure: No Current occupational status: unemployed Cognitive needs: No Hearing needs: No Vision needs: No Review of Systems Const All systems reviewed & are unremarkable except as noted in HPI and below Physical Exam Vital Signs: Last Vital Signs Pulse 107 H 12/17/24 10:26 BP 130/88 12/17/24 10:26 Pulse Ox 97 12/17/24 10:26 Oxygen Delivery Method Room Air 12/17/24 10:26 BMI result Body Mass Index 37.8 Const General: comfortable and no acute distress Orientation/consciousness: patient oriented x3 HEENT Head: Yes normocephalic Mouth: Normal oral and palatal mucosa present Eyes EOM: EOMs intact bilaterally Neck Neck: Yes supple Resp Auscultation: clear to auscultation bilaterally Cardio Jugular venous distension: no JVD Rate: regular rate GI Palpation (GI): Soft to palpation Auscultation: normal bowel sounds General: Yes no CVA tenderness Back/Spine/Pelvis Back: no CVA tenderness Skin General skin exam: no rashes or lesions noted Neuro General: patient oriented x3 and moves all extremities Extrem General: Yes no pedal edema Results Reviewed Nephrology Results: No Data to Display Assessment & Plan Assessment & Plan (1) HTN (hypertension): Code(s): I10 - Essential (primary) hypertension Category: Medical Qualifiers: Hypertension type: primary hypertension Qualified Code(s): I10 - Essential (primary) hypertension Plan Shreyas has poorly controlled diabetes with hypertension. He is on ARB. He does not have any proteinuria. He avoids nonsteroidal anti-inflammatories and maintain good hydration. He should lose weight, cut back salt in diet and increase activity. I discontinued his indapamide and increased his carvedilol to 6.25 mg b.i.d. He can continue rest of his current medication regimen. I shall work with him to optimize his antihypertensive medication regimen. He was asked to repeat blood work and urine studies today. follow-up appointment given. Answered all questions. Orders: Orders Protein Creatinine Ratio, Ur Today I10 - Essential (primary) hypertension Creatinine Today I10 - Essential (primary) hypertension Blood Urea Nitrogen Today I10 - Essential (primary) hypertension Electrolytes Today I10 - Essential (primary) hypertension Medications: Changed From carvedilol 3.125 mg PO BID 180 tabs 1RF To carvedilol 6.25 mg PO BID 60 tabs 2RF Discontinued indapamide Discontinued Reason: None 1.25 mg PO QAM 90 tabs 0RF Coding Level of Care Code New Pt Level 4 (66953) Diagnoses Primary hypertension I10 Hypertension type: primary hypertension
[2024-12-17 10:26] VITALS: BP 130/88; PULSE 107; O2SAT 97; BMI 37.8
== END 2024-12-17 11:02 | disposition home or self-care (01) ==
LOC: HO.HKAS 10:11
PROVIDERS: PCP Nurse Practitioner Family; Referring Provider Physician Assistant Medical; Visit Provider Internal Medicine Nephrology
DX: I10 Essential (primary) hypertension (principal)
CPT/HCPCS: 99204

== ENCOUNTER 2024-12-17 10:10 | Outpatient (REF) | payer OTHER, SELFPAY ==
[2024-12-17 18:18] LABS: Anion Gap 11 (12-20); Blood Urea Nitrogen 11 mg/dL (9-16); Carbon Dioxide 27 mmol/L (22-29); Chloride 103 mmol/L (96-108); Estimated Glomerular Filt Rate > 60; Potassium 4.3 mmol/L (3.3-5.1); Sodium 137 mmol/L (135-145)
[2024-12-17 19:03] LABS: Creatinine Urine 188.36 mg/dL; Total Protein Urine Random < 7 mg/dL (<12)
== END 2024-12-17 10:11 | disposition home or self-care (01) ==
LOC: HO.HKASLDS 10:10
PROVIDERS: PCP Nurse Practitioner Family; Referring Provider Physician Assistant Medical; Visit Provider Internal Medicine Nephrology
DX: I10 Essential (primary) hypertension (principal)
CPT/HCPCS: 36415; 80051; 82565; 82570; 84156; 84520; 99202

== ENCOUNTER 2025-01-19 11:22 | Outpatient (AMB) | payer MEDICAID, SELFPAY ==
--- NOTE | 2025-01-19 11:42 | HO.NEPHOV_ITS ---
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 He is currently unemployed but used to work in [place] before. He has a poorly controlled diabetic and his medications are being adjusted. His last hemoglobin A1c was over 11. He denies retinopathy, proteinuria, peripheral arterial disease, carotid stenosis, coron eri artery disease, CVA, congestive heart failure. He denies taking nonsteroidal anti-inflammatories or any drugs. His renal functions have been stable. He has very strong family history hypertension. He is not very good with his diet. He denies chest pain, palpitation, shortness of breath, paroxysmal nocturnal dyspnea, orthopnea, pedal edema, orthostatic symptoms, hematuria. He claims to be compliant with his medications. His blood pressure is at goal. He has been having some right flank pain without any associated symptoms. [facility] Medical History Type 2 diabetes mellitus with hyperglycemia Uncontrolled diabetes mellitus Surgical History No pertinent past surgical history Family History Father Chronic arthritis Gout Diabetes mellitus Mother HTN (hypertension) Maternal Grandmother Unknown family medical history Sister No problems noted. Son No problems noted. Daughter No problems noted. Social History Housing: House Alcohol intake: never Patient Tobacco Use Status: Former Tobacco user Cigarettes Per Day: 10 e-Cigarette/Vaping Use: Never Used Second Hand Smoke Exposure: No Current occupational status: unemployed Cognitive needs: No Hearing needs: No Vision needs: No Review of Systems Const All systems reviewed & are unremarkable except as noted in HPI and below Physical Exam Vital Signs: Last Vital Signs Pulse 93 01/19/25 11:43 BP 124/82 01/19/25 11:43 Pulse Ox 95 01/19/25 11:43 Oxygen Delivery Method Room Air 01/19/25 11:43 BMI result Body Mass Index 38.2 Const General: comfortable and no acute distress Orientation/consciousness: patient oriented x3 HEENT Head: Yes normocephalic Mouth: Normal oral and palatal mucosa present Eyes EOM: EOMs intact bilaterally Neck Neck: Yes supple Resp Auscultation: clear to auscultation bilaterally Cardio Jugular venous distension: no JVD Rate: regular rate GI Palpation (GI): Soft to palpation Auscultation: normal bowel sounds General: Yes no CVA tenderness Back/Spine/Pelvis Back: no CVA tenderness Skin General skin exam: no rashes or lesions noted Neuro General: patient oriented x3 and moves all extremities Extrem General: Yes no pedal edema Results Reviewed Nephrology Results: Sodium 137 mmol/L (135-145) 12/17/24 Potassium 4.3 mmol/L (3.3-5.1) 12/17/24 Chloride 103 mmol/L (96-108) 12/17/24 Carbon Dioxide 27 mmol/L (22-29) 12/17/24 BUN 11 mg/dL (9-16) 12/17/24 Creatinine 0.93 mg/dL (0.5-1.4) 12/17/24 Urine Creatinine 188.36 mg/dL 12/17/24 Protein/Creatinin Ratio TNP 12/17/24 Assessment & Plan Assessment & Plan (1) Flank pain: Code(s): R10.9 - Unspecified abdominal pain Category: Medical (2) HTN (hypertension): Code(s): I10 - Essential (primary) hypertension Category: Medical Qualifiers: Hypertension type: primary hypertension Qualified Code(s): I10 - Essential (primary) hypertension Plan Shreyas has poorly controlled diabetes with hypertension. He is on ARB. He does not have any proteinuria. He avoids nonsteroidal anti-inflammatories and maintain good hydration. He should lose weight, cut back salt in diet and increase activity. His BP is at goal on current medications. I have ordered a USS. He was asked to repeat blood work and urine studies today. follow-up appointment given. Answered all questions. Orders: Orders Creatinine 6 Months I10 - Essential (primary) hypertension, R10.9 - Unspecified abdominal pain Blood Urea Nitrogen 6 Months I10 - Essential (primary) hypertension, R10.9 - Unspecified abdominal pain Electrolytes 6 Months I10 - Essential (primary) hypertension, R10.9 - Unspecified abdominal pain US renal BI 1 Month I10 - Essential (primary) hypertension, R10.9 - Unspecified abdominal pain Coding Level of Care Code Est Pt Level 4 (01747) Diagnoses Flank pain R10.9 Primary hypertension I10 Hypertension type: primary hypertension
[2025-01-19 11:43] VITALS: BP 124/82; PULSE 93; O2SAT 95; BMI 38.2
== END 2025-01-19 12:03 | disposition home or self-care (01) ==
LOC: HO.HKAS 11:24
PROVIDERS: PCP Nurse Practitioner Family; Visit Provider Internal Medicine Nephrology
DX: R10.9 Unspecified abdominal pain (principal); I10 Essential (primary) hypertension
CPT/HCPCS: 99214

== ENCOUNTER → 2025-01-19 11:22 | Outpatient (BNVA) | payer OTHER, SELFPAY | PROVIDERS: PCP Nurse Practitioner Family; Visit Provider Internal Medicine Nephrology | DX: I10 Essential (primary) hypertension (principal); E11.9 Type 2 diabetes mellitus without complications; R10.9 Unspecified abdominal pain | CPT/HCPCS: 99212 ==

== ENCOUNTER 2025-05-11 14:27 | Outpatient (AMB) | payer OTHER, SELFPAY ==
[2025-05-11 14:28] VITALS: BP 120/80; PULSE 91; O2SAT 96; BMI 37.5
--- NOTE | 2025-05-11 14:28 | A.OFFVIS_ITS ---
Vital Signs 05/11/25 14:28 Height 6 ft 1 in Weight 284 lb 6.341 oz BMI 37.5 BP 120/80 Blood Pressure Location Rt brachial Position Sitting Pulse 91 Pulse Source Pulse Oximeter Pulse Oximetry (%) 96 Oxygen Delivery Method Room Air Intake Visit Reasons: T2DM Intake Note: Patient present today to follow up on Type 2 Diabetes Mellitus. 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 blood-glucose meter (OneTouch Verio Flex Meter) Use as directed to check blood glucose three times daily carvedilol 6.25 mg PO BID glucose (Dex4 Glucose Quick Dissolve) 16 grams (4 x 4 gram) PO Q15M PRN hydrocortisone 2.5% 1 appl topical BID PRN 14 days irbesartan 300 mg PO DAILY ketoconazole 2% 1 appl topical BID PRN lancets (Xinguoduuch Delica Plus Lancet) Use as directed to check blood glucose three times daily. pen needle, diabetic (Comfort EZ Pen Artemas) daily use with tresiba pen needle, diabetic (BD Krystina 2nd Gen Pen Needle) As directed to inject insulin once daily pravastatin 20 mg PO DAILY semaglutide (Ozempic) 1 mg (0.75 mL) subcut QWEEK HPI Comments Details: This is a 50-year-old male with a past medical history of type 2 diabetes, hypertension and obesity presenting for diabetic management. He was diagnosed with diabetes around 2020. Hemoglobin a1c is 9.6% today down from 11.1% 09/30/2024. His insurance does not cover a CGM. He forgot his glucometer today. He is not checking consistently. Current medication regimen: Ozempic 1 mg weekly, Lantus 10 units nightly and metformin extended release 500 mg daily. He is not taking metformin or Lantus. He lost 5 lb in the past 2 weeks. Stopped drinking soda completely on 04/27/25 that day after his birthday. He used to drink a 24 pack of Pepsi every 3 days. He is doing low carb, low sugar diet and no fast food. He is exercising on the treadmill 1 mile per day. He is starting to feel better. He is interested in seeing the dietitian now. Past medications: Trulicity was tolerated, but it was stopped because it was back ordered. Patient reports he was on 2000 mg of metformin total daily in the past which caused diarrhea. He does not know if it was extended release. Glipizide made him feel woozy and dizzy so it was discontinued. SGLT2-not prescribed due to history of balantitis and being uncircumcised. Hypoglycemia symptoms: no symptoms or episodes Hyperglycemia symptoms: Polyuria, polydipsia. Hypertension: treated with irbesartan, hydrochlorothiazide, amlodipine, carvedilol. Hyperlipidemia: treated with pravastatin 20 mg. Complications: OU macular edema and nonproliferative retinopathy, neuropathy in his feet ROS: Constitutional: No unexplained weight loss, fever, chills, fatigue or night sweats. Respiratory: No shortness of breath, cough or sputum production. Cardiovascular: No chest pain, chest pressure or chest discomfort. No palpitations or pedal edema. Endocrine: No cold or heat intolerance. No polyuria or polydipsia. Physical exam: Constitutional: Alert, in no distress. Neck: Supple, Full range of motion. No lymphadenopathy. No palpable thyroid masses. Respiratory: Clear to auscultation. Cardiovascular: S1 S2 regular. No murmurs. [facility] Medical History Diabetic retinopathy Type 2 diabetes mellitus with hyperglycemia Uncontrolled diabetes mellitus Surgical History No pertinent past surgical history Family History Father Chronic arthritis Gout Diabetes mellitus Mother HTN (hypertension) Maternal Grandmother Unknown family medical history Sister No problems noted. Son No problems noted. Daughter No problems noted. Social History Housing: House Alcohol intake: never Patient Tobacco Use Status: Former Tobacco user Cigarettes Per Day: 10 e-Cigarette/Vaping Use: Never Used Second Hand Smoke Exposure: No Current occupational status: unemployed Cognitive needs: No Hearing needs: No Vision needs: No Physical Exam Vital Signs: Last Vital Signs Pulse 91 05/11/25 14:28 BP 120/80 05/11/25 14:28 Pulse Ox 96 05/11/25 14:28 Oxygen Delivery Method Room Air 05/11/25 14:28 BMI result Body Mass Index 37.5 Results AMB Hemoglobin A1c AMB Hemoglobin A1c 9.6 % Last Edit by CHAVA Ceballos on 05/11/25 14:44 Results Reviewed Results Reviewed: Laboratory Last Values Glucose (Clinic) 179 mg/dL (60-115) H 05/11/25 14:35 Hgb A1c (Clinic) 9.6 % (4.0-6.0) H 05/11/25 14:44 Laboratory Tests 12/12/23 04/16/24 05/11/24 10:43 14:51 08:34 Creatinine 1.00 Estimated GFR > 60 Hgb A1c (Clinic) 9.3 H Triglycerides 202 H Cholesterol 168 LDL Cholesterol, Calc 97 HDL Cholesterol 31 L TSH 2.67 Urine Creatinine 57.85 Urine Microalbumin < 5.0 Microalb/Creat Ratio TNP 09/30/24 13:44 Creatinine Estimated GFR Hgb A1c (Clinic) 11.1 H Triglycerides Cholesterol LDL Cholesterol, Calc HDL Cholesterol TSH Urine Creatinine Urine Microalbumin Microalb/Creat Ratio Assessment & Plan Assessment & Plan (1) Type 2 diabetes mellitus with hyperglycemia: Code(s): E11.65 - Type 2 diabetes mellitus with hyperglycemia Category: Medical Qualifiers: Diabetes mellitus buttermaker helper insulin use: without buttermaker helper use Qualified Code(s): E11.65 - Type 2 diabetes mellitus with hyperglycemia Plan: In summary this is a 50-year-old male with uncontrolled type 2 diabetes with neuropathy and retinopathy. He just started the prescription for Ozempic 1 mg weekly. He does not want to take insulin or start metformin. Agreed to reconsider this if his diet is ineffective or he is not able to adhere to it. Short term follow up in 4 weeks for reassessment. Discussed pathophysiology of Type II Diabetes Mellitus with the patient in detail.? I explained the usp risks and complications associated with uncontrolled diabetes including nephropathy, neuropathy, peripheral vascular disease, retinopathy, increased risk of heart disease and stroke.? Discussed lifestyle modification with the patient. Recommended 30 minutes of moderately vigorous exercise 5 days per week to promote weight loss. We reviewed treatment of hypo/hyperglycemia. He has been provided with written instructions. Reminded patient he needs to have blood work done prior to his next appointment. He agreed to bring his glucometer to his next appointment. His insurance does not cover a CGM unless he is on 3 injections of insulin daily. Refer to dietitian. (2) HTN (hypertension): Code(s): I10 - Essential (primary) hypertension Category: Medical Qualifiers: Hypertension type: primary hypertension Qualified Code(s): I10 - Essential (primary) hypertension Plan: Controlled. Continue current regimen. Followed by Nephrology. Plan Follow up in 4 weeks for type 2 diabetes. Orders: Orders AMB Hemoglobin A1c Today E11.65 - Type 2 diabetes mellitus with hyperglycemia Creatinine Today E11.65 - Type 2 diabetes mellitus with hyperglycemia, E11.9 - Type 2 diabetes mellitus without complications, I10 - Essential (primary) hypertension Lipid Panel Today E11.65 - Type 2 diabetes mellitus with hyperglycemia, E78.5 - Hyperlipidemia, unspecified, I10 - Essential (primary) hypertension Alanine Aminotransferase Today E11.65 - Type 2 diabetes mellitus with hyperglycemia, I10 - Essential (primary) hypertension Aspartate Amino Transferase Today E11.65 - Type 2 diabetes mellitus with hyperglycemia, I10 - Essential (primary) hypertension TSH reflex Free T4 Today E11.65 - Type 2 diabetes mellitus with hyperglycemia, I10 - Essential (primary) hypertension Microalbumin, Random (w Creat) Today E11.65 - Type 2 diabetes mellitus with hyperglycemia, E11.9 - Type 2 diabetes mellitus without complications, I10 - Essential (primary) hypertension Referrals Field Agronomist Nutrition Referral E11.65 - Type 2 diabetes mellitus with hyperglycemia Coding Level of Care Code Est Pt Level 4 (69776) Complex EM visit Add On G2211 Diagnoses Type 2 diabetes mellitus with hyperglycemia, without long-term current use of insulin E11.65 Diabetes mellitus usp insulin use: without buttermaker helper use Primary hypertension I10 Hypertension type: primary hypertension
[2025-05-11 14:38] LABS: Glucose, Whole Blood 179 mg/dL (60-115)
== END 2025-05-11 15:05 | disposition home or self-care (01) ==
LOC: HO.ENCR 14:27
PROVIDERS: PCP Nurse Practitioner Family; Visit Provider Physician Assistant Medical
DX: E11.65 Type 2 diabetes mellitus with hyperglycemia (principal); I10 Essential (primary) hypertension

== ENCOUNTER → 2025-05-11 14:27 | Outpatient (BNVA) | payer OTHER, SELFPAY | PROVIDERS: PCP Nurse Practitioner Family; Visit Provider Physician Assistant Medical | DX: E11.65 Type 2 diabetes mellitus with hyperglycemia (principal) | CPT/HCPCS: 82947; 83036; 99212 ==

== ENCOUNTER 2025-06-04 08:16 | Outpatient (REF) | payer OTHER, SELFPAY ==
[2025-06-04 10:25] LABS: MANUAL DIFF FLAG NO
[2025-06-04 10:28] LABS: Hematocrit 45.2 % (42.0-52.0); Hemoglobin 15.3 g/dl (14.0-18.0); Imm Gran Abs Auto 0.02 X10*3/uL (0.00-0.03); Imm Gran Pct Auto 0.3 % (0.0-0.4); Lymphocytes Absolute Auto 2.0 X10*3/uL (1.2-4.9); Mean Corpuscular HGB Conc 33.8 g/dl (31.0-36.0); Mean Corpuscular Hemoglobin 30.1 pg (27.0-33.0); Mean Corpuscular Volume 88.8 fL (80.0-98.0); NRBC Abs Auto 0.000 X10*3/uL (0.0-0.012); NRBC Pct Auto 0.0 /100WBC (0.0-0.2); Platelet Count 255 X10*3/uL (160-400); Red Blood Count 5.09 X10*6/uL (4.60-5.80); White Blood Count 6.0 X10*3/uL (4.8-10.8)
[2025-06-04 10:35] LABS: B Type Natriuretic Peptide < 10 pg/mL (<100)
[2025-06-04 11:01] LABS: Appearance Urine Clear; Glucose Urine UA Negative (Negative); PH 5.5 (5.0-9.0); Specific Gravity - Urine 1.020 (1.005-1.025)
[2025-06-04 11:38] LABS: Microalbum/Creatinine Ratio Ur 4.3 ug/mg cr (<30)
[2025-06-04 12:02] LABS: Alanine Aminotransferase 26 U/L (0-40); Albumin Level 4.8 g/dL (3.5-5.0); Alkaline Phosphatase 72 U/L (39-117); Anion Gap 14 (12-20); Aspartate Amino Transferase 25 U/L (5-37); Blood Urea Nitrogen 13 mg/dL (9-16); Calcium 9.7 mg/dL (8.4-10.2); Carbon Dioxide 26 mmol/L (22-29); Chloride 102 mmol/L (96-108); Cholesterol 164 mg/dL (<200); Estimated Glomerular Filt Rate > 60; HDL Cholesterol 32 mg/dL (>40); Potassium 4.5 mmol/L (3.3-5.1); Sodium 137 mmol/L (135-145); Total Protein 7.8 g/dL (6.5-8.0); Triglycerides 120 mg/dL (<150)
[2025-06-04 12:06] LABS: Alanine Aminotransferase 27 U/L (0-40); Aspartate Amino Transferase 24 U/L (5-37); Cholesterol 164 mg/dL (<200); HDL Cholesterol 32 mg/dL (>40); Triglycerides 120 mg/dL (<150)
== END 2025-06-04 08:17 | disposition home or self-care (01) ==
LOC: HO.HMGCLDS 08:16
PROVIDERS: PCP Nurse Practitioner Family; Referring Provider Physician Assistant Medical; Visit Provider Nurse Practitioner Family
DX: E11.65 Type 2 diabetes mellitus with hyperglycemia (principal); I10 Essential (primary) hypertension; E78.5 Hyperlipidemia, unspecified
CPT/HCPCS: 36415; 80048; 80053; 80061; 81003; 82043; 82570; 83880; 84443; 84450; 84460; 85025

== ENCOUNTER 2025-07-07 09:18 | Outpatient (AMB) | payer OTHER, SELFPAY ==
[2025-07-07 09:24] VITALS: BMI 40.6
--- NOTE | 2025-07-07 09:24 | A.OFFVIS_ITS ---
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3-5.1) 4.5 mmol/L 06/04/25 Chloride, (96-108) 102 mmol/L 06/04/25 Carbon Dioxide, (22-29) 26 mmol/L 06/04/25 Calcium, (8.4-10.2) 9.7 mg/dL 06/04/25 AST, (5-37) 24 U/L 06/04/25 ALT, (0-40) 27 U/L 06/04/25 Total Protein, (6.5-8.0) 7.8 g/dL 06/04/25 Albumin, (3.5-5.0) 4.8 g/dL 06/04/25 JLY-Yrafrvl-Rz.Jeor Equation Height: 5 ft 10.4 in Weight: 287 lb Resting Metabolic Rate: 2182.05 Calculated Activity Level: Mild Activity Calories Needed to Maintain Weight: 3000.32 Diagnosis Nutrition problem #1: food nutri know defi [facility] Medical History Diabetic retinopathy Type 2 diabetes mellitus with hyperglycemia Uncontrolled diabetes mellitus Surgical History No pertinent past surgical history Family History Father Chronic arthritis Gout Diabetes mellitus Mother HTN (hypertension) Maternal Grandmother Unknown family medical history Sister No problems noted. Son No problems noted. Daughter No problems noted. 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 Recommended total amount of carbohydrates per meals and snack. Differences between simple carbohydrates and complex carbohydrates R, V, N/A: Lean protein foods including vegan , vegetarian sources of protein. Benefits of protein (including but not limited to healing, nutritional value , benefits in weight loss, glucose control R, V, N/A: Fats : Source of fats, benefits of fats. Difference between saturated and unsaturated fats. Saturated fats and its contribution to inflammation R, V, N/A: Fiber: food sources and role of fiber in the diet (including but not limited to its role as a prebiotic, benefits in constipation, role in IBS , role in glucose control and cholesterol level) R, V, N/A: Hydration: role of hydration and prevention of dehydration or over hydration. Foods and water content. R, V, N/A: Vitamins and Minerals in foods and supplements R, V, N/A: Interpreting food labels, including serving size, macronutrients, vitamins, minerals, allergens, ingredient list , % daily value Patient Instructions: Work on portion control reducing total carb at dinner to 100 g following healthy plate method (less than 2 cups of cooked starch (starches/starchy vegetables) and snack to less than 30 g (ex 1/2 sand and 1 cup of milk ) monitor your blood sugar fasting and 2 hours after your dinner Coding Level of Care Code Nutr Indiv Intake (36934) Diagnoses Type 2 diabetes mellitus with hyperglycemia, without long-term current use of insulin E11.65 Diabetes mellitus watermelon harvesting supervisor insulin use: without shelter use Time Spent (min) 30
[2025-07-07 09:39] VITALS: BMI 40.7
== END 2025-07-07 10:13 | disposition home or self-care (01) ==
LOC: HO.ENCR 09:19
PROVIDERS: PCP Nurse Practitioner Family; Visit Provider Dietitian, Registered
DX: E11.65 Type 2 diabetes mellitus with hyperglycemia (principal)

== ENCOUNTER → 2025-07-07 09:18 | Outpatient (BNVA) | payer OTHER, SELFPAY | PROVIDERS: PCP Nurse Practitioner Family; Visit Provider Dietitian, Registered | DX: E11.65 Type 2 diabetes mellitus with hyperglycemia (principal) | CPT/HCPCS: 97802 ==

== ENCOUNTER 2025-07-16 09:22 | Outpatient (AMB) | payer OTHER, SELFPAY ==
[2025-07-16 09:24] VITALS: BP 156/92; PULSE 101; O2SAT 97; BMI 41.4
--- NOTE | 2025-07-16 09:24 | MHC.OFFVIS ---
Vital Signs 07/16/25 09:24 Height 5 ft 10.4 in Weight 292 lb 1.8 oz BMI 41.4 BP 156/92 H Blood Pressure Location Lt brachial Position Sitting Pulse 101 H Pulse Source Pulse Oximeter Pulse Oximetry (%) 97 Oxygen Delivery Method Room Air Intake Visit Reasons: Type II diabetes Intake Note: Patient present today to follow up on Type 2 Diabetes Mellitus. Last Diabetic Eye exam: 01/27/2025, [facility] Last Podiatry Visit: Does not see a [employer] HgA1C: 9.6%, 05/11/2025 Random Glucose: 233 mg/dL Spar Machine Operator Required: No Accompanied by: Self / Same As Patient Allergies lisinopril Adverse Reaction (Unknown, Verified 07/16/25 09:29) cough dogs and cats Allergy (Unknown, Uncoded 07/16/25 09:29) Unknown oak Allergy (Unknown, Uncoded 07/16/25 09:) Unknown HPI Comments Details: This is a 50-year-old male with a past medical history of type 2 diabetes, hypertension and obesity presenting for diabetic management. He slipped down his stairs. He had no severe injuries. His toe is bruised, and his knee hurts, but he is okay. No head injury. He also had COVID-19 since last time I saw him. He was diagnosed with diabetes around 2019. Met with dietitian 07/07/2025. Last Hemoglobin a1c is 9.6% today down from 11.1%. His insurance does not cover a CGM because he does not take insulin. He forgot his glucometer today. He is not checking consistently. Current medication regimen: Ozempic 1 mg weekly He was previously prescribed Lantus and metformin, but he did not take them. He is still off of soda, but he has been eating more carbohydrates and gained weight. Past medications: Trulicity was tolerated, but it was stopped because it was back ordered. Patient reports he was on 2000 mg of metformin total daily in the past which caused diarrhea. He does not know if it was extended release. Glipizide made him feel woozy and dizzy so it was discontinued. SGLT2-not prescribed due to history of balantitis and being uncircumcised. Hypoglycemia symptoms: no symptoms or episodes Hyperglycemia symptoms: Polyuria, polydipsia. Hypertension: treated with irbesartan, hydrochlorothiazide, amlodipine, carvedilol. He did not take them the last 2 days. His blood pressure is elevated. Hyperlipidemia: treated with pravastatin 20 mg. He has not been taking this. His LDL is 108 with a goal of less than 100. Complications: OU macular edema and nonproliferative retinopathy, neuropathy in his feet ROS: Constitutional: No unexplained weight loss, fever, chills, fatigue or night sweats. Respiratory: No shortness of breath, cough or sputum production. Cardiovascular: No chest pain, chest pressure or chest discomfort. No palpitations or pedal edema. Endocrine: No cold or heat intolerance. No polyuria or polydipsia. Physical exam: Constitutional: Alert, in no distress. Neck: Supple, Full range of motion. No lymphadenopathy. No palpable thyroid masses. Respiratory: Clear to auscultation. Cardiovascular: S1 S2 regular. No murmurs. Feet: There is mild ecchymosis on the left toe which is mildly tender to palpation. He has full range of motion. Neurovascularly intact. [facility] Medical History (Updated 07/16/25 @ 10:05 by BIN Conte) Dyslipidemia Diabetic retinopathy Type 2 diabetes mellitus with hyperglycemia Uncontrolled diabetes mellitus Surgical History No pertinent past surgical history Family History Father Chronic arthritis Gout Diabetes mellitus Mother HTN (hypertension) Maternal Grandmother Unknown family medical history Sister No problems noted. Son No problems noted. Daughter No problems noted. Social History Housing: House Alcohol intake: never Patient Tobacco Use Status: Former Tobacco user Cigarettes Per Day: 10 e-Cigarette/Vaping Use: Never Used Second Hand Smoke Exposure: No Current occupational status: unemployed Cognitive needs: No Hearing needs: No Vision needs: No Physical Exam Vital Signs: Last Vital Signs Pulse 101 H 07/16/25 09:24 BP 156/92 H 07/16/25 09:24 Pulse Ox 97 07/16/25 09:24 Oxygen Delivery Method Room Air 07/16/25 09:24 BMI result Body Mass Index 41.4 Results Reviewed Results Reviewed: Laboratory Last Values Glucose (Clinic) 233 mg/dL (60-115) H 07/16/25 09:32 Laboratory Tests 06/04/25 09:04 Creatinine 0.89 Estimated GFR > 60 AST 24 ALT 27 Triglycerides 120 Cholesterol 164 LDL Cholesterol, Calc 108 H HDL Cholesterol 32 L TSH 1.68 Urine Creatinine 136.84 Urine Microalbumin 6.0 Microalb/Creat Ratio 4.3 Assessment & Plan Assessment & Plan (1) Type 2 diabetes mellitus with hyperglycemia: Code(s): E11.65 - Type 2 diabetes mellitus with hyperglycemia Category: Medical Qualifiers: Diabetes mellitus halfway insulin use: without halfway use Qualified Code(s): E11.65 - Type 2 diabetes mellitus with hyperglycemia Plan: In summary this is a 50-year-old male with uncontrolled type 2 diabetes with neuropathy and retinopathy. Despite increasing Ozempic he continues to have hyperglycemia, and he gained weight. It has not helped with food cravings. Switch to Mounjaro 2.5 mg weekly with plan to titrate based on efficacy and tolerability. Side effects reviewed with the patient. Start metformin extended release 500 mg daily. Monitor for GI side effects. He does not want to start insulin. Discussed pathophysiology of Type II Diabetes Mellitus with the patient in detail.? I explained the halfway risks and complications associated with uncontrolled diabetes including nephropathy, neuropathy, peripheral vascular disease, retinopathy, increased risk of heart disease and stroke.? Discussed lifestyle modification with the patient. Recommended 30 minutes of moderately vigorous exercise 5 days per week to promote weight loss. We reviewed treatment of hypo/hyperglycemia. He has been provided with written instructions. He agreed to bring his glucometer to his next appointment. His insurance does not cover a CGM unless he is on insulin. (2) HTN (hypertension): Code(s): I10 - Essential (primary) hypertension Category: Medical Qualifiers: Hypertension type: primary hypertension Qualified Code(s): I10 - Essential (primary) hypertension Plan: Followed by Nephrology. Blood pressure is elevated today due to noncompliance with medications. He will restart them. Commended low-sodium diet and avoidance of caffeine. (3) Dyslipidemia: Code(s): E78.5 - Hyperlipidemia, unspecified Category: Medical Plan: Restart pravastatin 20 mg daily. Lifestyle modifications reviewed. Plan Follow up in 4 weeks for type 2 diabetes. Medications: New tirzepatide (Mounjaro) for 4 weeks 2.5 mg (0.5 mL) subcut QWEEK 2 mL 0RF metformin ER 500 mg PO DAILY 90 tabs 0RF Patient Instructions: Start Mounjaro 2.5 mg weekly 1 week after the last dose of Ozempic Start Metformin ER 500 mg daily If you experience low blood sugar, treat this by eating a chewable fruit candy like skittles or jelly beans (about 8 pieces), 4 ounces (1/2 cup) of fruit juice (not diet), 1 tablespoon of honey or 4 glucose tablets. If your blood sugar is under 50, take double the amount of one of the above. Recheck your blood sugar in 15 minutes. Coding Level of Care Code Est Pt Level 4 (77340) Complex EM visit Add On G2211 Diagnoses Type 2 diabetes mellitus with hyperglycemia, without long-term current use of insulin E11.65 Diabetes mellitus buttermaker helper insulin use: without buttermaker helper use Primary hypertension I10 Hypertension type: primary hypertension Dyslipidemia E78.5
[2025-07-16 09:36] LABS: Glucose, Whole Blood 233 mg/dL (60-115)
== END 2025-07-16 10:04 | disposition home or self-care (01) ==
LOC: HO.ENCR 09:23
PROVIDERS: PCP Nurse Practitioner Family; Visit Provider Physician Assistant Medical
DX: E11.65 Type 2 diabetes mellitus with hyperglycemia (principal); I10 Essential (primary) hypertension; E78.5 Hyperlipidemia, unspecified

== ENCOUNTER → 2025-07-16 09:22 | Outpatient (BNVA) | payer OTHER, SELFPAY | PROVIDERS: PCP Nurse Practitioner Family; Visit Provider Physician Assistant Medical | DX: E11.65 Type 2 diabetes mellitus with hyperglycemia (principal); E11.3213 Type 2 diabetes mellitus with mild nonproliferative diabetic retinopathy with macular edema, bilateral; E11.42 Type 2 diabetes mellitus with diabetic polyneuropathy; I10 Essential (primary) hypertension; E78.5 Hyperlipidemia, unspecified; Z79.84 Long term (current) use of oral hypoglycemic drugs; Z91.148 Patient's other noncompliance with medication regimen for other reason | CPT/HCPCS: 82947; 99212 ==

== ENCOUNTER 2025-08-26 14:10 | Outpatient (REF) | payer OTHER, SELFPAY ==
--- NOTE | ~2025-08-26 | US_ITS ---
EXAMINATION: US KIDNEY BILATERAL HISTORY: R10.9 - Flank pain, hypertension TECHNIQUE: Real-time grayscale ultrasound imaging of the kidneys was performed and images were reviewed. COMPARISON: Correlation is made with an abdominal ultrasound dated 03/23/2016. FINDINGS: Right kidney: The right kidney measures 14.3 x 7.8 x 5.2 cm. There is an hypertrophied column of Jean-Claude. Renal parenchymal echotexture and thickness are otherwise normal. There are no masses. There is no hydronephrosis or renal calculi. Left Kidney: The left kidney measures 12.4 x 7.3 x 5.1 cm. Renal parenchymal echotexture and thickness are normal. There are no masses. There is no hydronephrosis or renal calculi. US/US renal BI IMPRESSION: Unremarkable renal ultrasound. Electronically signed by: Benjamin Jarvis MD 08/26/2025 02:59 PM ART
== END 2025-08-26 14:11 | disposition home or self-care (01) ==
LOC: HO.US 14:10
PROVIDERS: PCP Nurse Practitioner Family; Visit Provider Internal Medicine Nephrology
DX: I10 Essential (primary) hypertension (principal); R10.A0 Flank pain, unspecified side
CPT/HCPCS: 76775

== ENCOUNTER → 2025-08-26 14:12 | Outpatient (BNV) | payer OTHER, SELFPAY | PROVIDERS: PCP Nurse Practitioner Family; Visit Provider Radiology Diagnostic Radiology | DX: R10.A0 Flank pain, unspecified side (principal); I10 Essential (primary) hypertension | CPT/HCPCS: 76775 ==